=== PATIENT | male | born 1975 | race African-American/Black ===

== ENCOUNTER 2020-09-25 17:24 | Inpatient (IN) | payer MEDICAID, OTHER ==
[~2020-09-25] VITALS: Ht 162.6 cm; Wt 74.2 kg
[2020-09-25] MEDS ORDERED: INSULIN LANTUS (GLARGINE) 1 /0.01ml (100units/ml) SC ONE (18:00)
[2020-09-25] MEDS ORDERED: SODIUM CHLORIDE 0.9% 1,000 ML IV ONE (18:00)
[2020-09-25] MEDS ORDERED: InsuLIN R (HUMAN) 100 UNITS in SODIUM CHL 0.9% 99 ML IV SCH (18:00)
[2020-09-25] MEDS ORDERED: CLINDAMYCIN 600MG IV 50 ML IV ONE (18:00)
[2020-09-25] MEDS: ACCU-CHEK COMFORT CURVE STRIP VI SCH ×4 (18:00→22:30)
[2020-09-25] MEDS ORDERED: DEXTROSE (50%) 50ML SYRG IV PRN (18:00)
[2020-09-25] MEDS ORDERED: hydrALAZINE HCL 20 MG/ML VL IV ONE (18:15)
[2020-09-25] MEDS ORDERED: cloNIDine HCL 0.1 MG TAB PO ONE (18:15)
[2020-09-25 18:58] LABS: Basophils # (auto) 0 10 ^3/uL (0-0.2); Basophils % (auto) 0.5 % (0.0-2.0); Eosinophils # (auto) 0 10 ^3/uL (0-0.8); Eosinophils % (auto) 0.4 % (0.0-7.0); Hematocrit 38.4 % (41.0-53.0); Hemoglobin 13.4 g/dL (13.5-17.5); Lymphocytes # (auto) 1.6 10 ^3/uL (0.4-5.4); Lymphocytes % (auto) 29.4 % (10.0-50.0); Monocytes # (auto) 0.3 10 ^3/uL (0-1.3); Monocytes % (auto) 6.2 % (0.0-12.0); Neutrophils # (auto) 3.5 10 ^3/uL (1.6-8.6); Neutrophils % (auto) 63.5 % (37.0-80.0); Nucleated Red Blood Cells % 0.2 %; Red Blood Cells 4.63 10^6/uL (4.5-5.90); Red Cell Distribution Width 12.8 % (11.8-14.3); White Blood Cell 5.5 10^3/uL (4.4-10.8)
[2020-09-25 19:12] LABS: Albumin 3.5 g/dL (3.4-5.0); Calcium 9.5 mg/dL (8.5-10.1); Magnesium 1.8 mg/dL (1.6-2.6)
[2020-09-25 19:22] LABS: BUN/Creatinine Ratio 8.8; Bilirubin, Total 0.6 mg/dL (0.2-1.0); Total Protein 7.7 g/dL (6.4-8.2)
[2020-09-25] MEDS ORDERED: TEMAZEPAM 15 MG CAP PO PRN (21:15)
[2020-09-25] MEDS ORDERED: ONDANSETRON HCL 4 MG/2 ML VIAL IV PRN (21:15)
[2020-09-25] MEDS ORDERED: cefTRIAXone 1GM/50ML D5W 50 ML IV ONE (21:15)
[2020-09-25] MEDS ORDERED: ACETAMINOPHEN 325 MG TAB PO PRN (21:15)
[2020-09-25 21:25] LABS: Urine WBC None Seen /hpf (0 - 3)
[2020-09-25 21:32] LABS: Urine Bacteria NONE SEEN /hpf (None Seen); Urine Blood Negative /uL (Negative); Urine Specific Gravity 1.031 (1.001-1.035)
[2020-09-25] MEDS: SODIUM CHLORIDE 0.9% 1,000 ML IV SCH (21:35)
[2020-09-25] MEDS: FAMOTIDINE 20 MG TAB PO SCH (22:20)
[2020-09-25] MEDS ORDERED: MORPHINE SULFATE INJECTION 2 MG/ML SYRG IV PRN (22:45)
[2020-09-25] MEDS ORDERED: NITROGLYCERIN 0.4 MG SL TAB SL PRN (22:45)
[2020-09-25 23:32] LABS: BUN/Creatinine Ratio 11.3; Calcium 9.5 mg/dL (8.5-10.1); Potassium 3.5 mmol/L (3.5-5.1)
[2020-09-26] MEDS: ACCU-CHEK COMFORT CURVE STRIP VI SCH ×9 (01:48→20:46)
[2020-09-26] MEDS: CLINDAMYCIN 600MG IV 50 ML IV SCH ×2 (05:45→14:55)
[2020-09-26] MEDS ORDERED: DEXTROSE (50%) 50ML SYRG IV PRN (06:30)
[2020-09-26 07:55] LABS: Basophils # (auto) 0 10 ^3/uL (0-0.2); Basophils % (auto) 0.8 % (0.0-2.0); Eosinophils # (auto) 0 10 ^3/uL (0-0.8); Eosinophils % (auto) 0.7 % (0.0-7.0); Hematocrit 35.2 % (41.0-53.0); Hemoglobin 12.5 g/dL (13.5-17.5); Lymphocytes # (auto) 2.5 10 ^3/uL (0.4-5.4); Lymphocytes % (auto) 40.2 % (10.0-50.0); Mean Corpuscular Hemoglobin 28.8 pg (28.0-32.0); Mean Corpuscular Hgb Conc. 35.4 g/dL (32.0-36.0); Mean Corpuscular Volume 81.4 fL (80.0-100.0); Monocytes # (auto) 0.4 10 ^3/uL (0-1.3); Monocytes % (auto) 6.1 % (0.0-12.0); Neutrophils # (auto) 3.2 10 ^3/uL (1.6-8.6); Neutrophils % (auto) 52.2 % (37.0-80.0); Nucleated Red Blood Cells % 0.1 %; Red Blood Cells 4.33 10^6/uL (4.5-5.90); Red Cell Distribution Width 12.5 % (11.8-14.3); White Blood Cell 6.1 10^3/uL (4.4-10.8)
[2020-09-26 08:20] LABS: Albumin 2.8 g/dL (3.4-5.0); BUN/Creatinine Ratio 15.4; Calcium 9.1 mg/dL (8.5-10.1); Potassium 3.6 mmol/L (3.5-5.1)
[2020-09-26 08:23] LABS: Bilirubin, Total 0.5 mg/dL (0.2-1.0); Total Protein 6.8 g/dL (6.4-8.2)
[2020-09-26] MEDS: SODIUM CHLORIDE 0.9% 1,000 ML IV SCH (09:01)
[2020-09-26 09:30] VITALS: BP 154/98
[2020-09-26] MEDS ORDERED: HYDR100T22 PO (09:47)
[2020-09-26] MEDS ORDERED: METF-929 PO (09:47)
[2020-09-26] MEDS ORDERED: BENA40TA8 PO (09:47)
[2020-09-26] MEDS ORDERED: INSU1INJ19 SC (09:47)
[2020-09-26] MEDS ORDERED: LISINOPRIL 5 MG TAB PO SCH (10:00)
[2020-09-26] MEDS: InsuLIN REG 1unit/0.01ml Soln (100units/ml) SC SCH ×4 (10:53→20:43)
[2020-09-26] MEDS: cefTRIAXone 1GM/50ML D5W 50 ML IV SCH (10:54)
[2020-09-26] MEDS: FAMOTIDINE 20 MG TAB PO SCH (10:54)
[2020-09-26] MEDS: INSULIN LANTUS (GLARGINE) 1 /0.01ml (100units/ml) SC SCH (10:55)
[2020-09-26] MEDS: ENOXAPARIN SOD 40 MG/0.4 ML SYRINGE SC SCH (10:55)
[2020-09-26] MEDS ORDERED: ATOR40TA52 PO (11:43)
[2020-09-26 13:00] VITALS: BP 144/99
[2020-09-26] MEDS: metroNIDAZOLE 500MG/100ML 100 ML IV SCH ×2 (13:04→17:39)
[2020-09-26 17:00] VITALS: BP 163/118
[2020-09-26] MEDS: BENAZEPRIL HCL 10 MG TAB PO SCH (17:22)
[2020-09-26] MEDS: hydrALAZINE HCL 20 MG/ML VL IV PRN (18:22)
[2020-09-26 20:00] VITALS: BP 161/98
[2020-09-26 22:09] VITALS: BP 161/98
[2020-09-27] VITALS (7 sets, daily range): BP systolic 145–166; BP diastolic 93–112
[2020-09-27] MEDS: CLINDAMYCIN 600MG IV 50 ML IV SCH ×3 (00:45→14:00)
[2020-09-27] MEDS: FAMOTIDINE 20 MG TAB PO SCH ×3 (00:45→22:00)
[2020-09-27] MEDS: InsuLIN REG 1unit/0.01ml Soln (100units/ml) SC SCH ×6 (00:47→20:56)
[2020-09-27] MEDS: metroNIDAZOLE 500MG/100ML 100 ML IV SCH ×2 (04:56→10:32)
[2020-09-27] MEDS: ACCU-CHEK COMFORT CURVE STRIP VI SCH ×6 (05:06→20:00)
[2020-09-27] MEDS: cefTRIAXone 1GM/50ML D5W 50 ML IV SCH (08:58)
[2020-09-27] MEDS: ATORVASTATIN 20 MG TAB PO SCH (08:58)
[2020-09-27] MEDS: ENOXAPARIN SOD 40 MG/0.4 ML SYRINGE SC SCH (08:59)
[2020-09-27] MEDS: BENAZEPRIL HCL 10 MG TAB PO SCH (08:59)
[2020-09-27] MEDS: INSULIN LANTUS (GLARGINE) 1 /0.01ml (100units/ml) SC SCH (10:36)
[2020-09-27] MEDS: hydrALAZINE HCL 20 MG/ML VL IV PRN (12:43)
[2020-09-27] MEDS ORDERED: amLODIPine BESYLATE 5 MG TAB PO ONE (18:00)
[2020-09-27 19:28] LABS: INR 0.98 (0.9-1.15); Partial Thromboplastin Time 28.7 sec (23.0-31.2)
[2020-09-28] MEDS: CLINDAMYCIN 600MG IV 50 ML IV SCH ×4 (01:02→23:01)
[2020-09-28] MEDS: ACCU-CHEK COMFORT CURVE STRIP VI SCH ×6 (04:30→20:00)
[2020-09-28] MEDS: InsuLIN REG 1unit/0.01ml Soln (100units/ml) SC SCH ×6 (04:30→20:00)
[2020-09-28 05:11] VITALS: BP 157/117
[2020-09-28 07:15] LABS: Basophils # (auto) 0 10 ^3/uL (0-0.2); Basophils % (auto) 0.9 % (0.0-2.0); Eosinophils # (auto) 0 10 ^3/uL (0-0.8); Eosinophils % (auto) 0.7 % (0.0-7.0); Hematocrit 36.7 % (41.0-53.0); Hemoglobin 12.8 g/dL (13.5-17.5); Lymphocytes # (auto) 1.6 10 ^3/uL (0.4-5.4); Lymphocytes % (auto) 37.4 % (10.0-50.0); Mean Corpuscular Hemoglobin 28.9 pg (28.0-32.0); Mean Corpuscular Volume 82.5 fL (80.0-100.0); Monocytes # (auto) 0.3 10 ^3/uL (0-1.3); Monocytes % (auto) 7.5 % (0.0-12.0); Neutrophils # (auto) 2.3 10 ^3/uL (1.6-8.6); Neutrophils % (auto) 53.5 % (37.0-80.0); Nucleated Red Blood Cells % 0.1 %; Red Blood Cells 4.45 10^6/uL (4.5-5.90); Red Cell Distribution Width 12.6 % (11.8-14.3); White Blood Cell 4.3 10^3/uL (4.4-10.8)
[2020-09-28 07:53] LABS: Potassium 3.9 mmol/L (3.5-5.1)
[2020-09-28 07:59] LABS: BUN/Creatinine Ratio 24.6; Calcium 8.9 mg/dL (8.5-10.1)
[2020-09-28 08:49] VITALS: BP 140/97
[2020-09-28] MEDS: ATORVASTATIN 20 MG TAB PO SCH (08:59)
[2020-09-28] MEDS: cefTRIAXone 1GM/50ML D5W 50 ML IV SCH (08:59)
[2020-09-28] MEDS: BENAZEPRIL HCL 10 MG TAB PO SCH (09:01)
[2020-09-28] MEDS: amLODIPine BESYLATE 5 MG TAB PO SCH (09:01)
[2020-09-28] MEDS: FAMOTIDINE 20 MG TAB PO SCH (09:01)
[2020-09-28] MEDS: ENOXAPARIN SOD 40 MG/0.4 ML SYRINGE SC SCH (09:03)
[2020-09-28 13:00] VITALS: BP 141/85
[2020-09-28] MEDS ORDERED: ceFAZolin 1GM/50ML 100 ML IV ONE (13:13)
[2020-09-28] MEDS ORDERED: ceFAZolin 1GM VL ONE (13:32)
[2020-09-28] MEDS ORDERED: ONDANSETRON HCL 4 MG/2 ML VIAL IV PRN ×2 (13:45→14:45)
[2020-09-28] MEDS ORDERED: LABETALOL HCL 5 MG/ML 4ML SYRINGE IV PRN ×2 (13:45→14:45)
[2020-09-28] MEDS ORDERED: fentaNYL CITRATE 100 MCG/2 ML VL ONE (13:45)
[2020-09-28] MEDS ORDERED: MIDAZOLAM HCL 2MG/2ML 2ml VIAL (1mg/ml) IV PRN ×2 (13:45→14:45)
[2020-09-28] MEDS ORDERED: HYDROmorphone HCL 2 MG/ML VL IV PRN ×2 (13:45→14:45)
[2020-09-28] MEDS ORDERED: MORPHINE SULFATE 4 MG/ML SYR/VIAL IV PRN (13:45)
[2020-09-28] MEDS ORDERED: MIDAZOLAM HCL 2MG/2ML 2ml VIAL (1mg/ml) ONE (13:45)
[2020-09-28] MEDS ORDERED: ePHEDrine SULFATE 50 MG/ML AMP IV PRN ×2 (13:45→14:45)
[2020-09-28] MEDS ORDERED: MEPERIDINE HCL (25 MG/ML) 1ML VIAL ONE (13:45)
[2020-09-28] MEDS ORDERED: PROPOFOL 10 MG/ML 20 ML IV ONE (13:52)
[2020-09-28] MEDS ORDERED: ePHEDrine SULFATE 50 MG/ML AMP ONE (14:31)
[2020-09-28] MEDS ORDERED: MORPHINE SULFATE INJECTION 2 MG/ML SYRG IV PRN (14:45)
[2020-09-28] MEDS: INSULIN LANTUS (GLARGINE) 1 /0.01ml (100units/ml) SC SCH (15:44)
[2020-09-28 17:00] VITALS: BP 134/88
[2020-09-28 20:00] VITALS: BP 137/87
[2020-09-28] MEDS: HYDROcodone-ACET 5/325MG TAB PO PRN (20:05)
[2020-09-28 22:00] VITALS: BP 137/87
[2020-09-29] MEDS: ACCU-CHEK COMFORT CURVE STRIP VI SCH ×6 (04:00→20:00)
[2020-09-29] MEDS: InsuLIN REG 1unit/0.01ml Soln (100units/ml) SC SCH ×6 (04:00→21:05)
[2020-09-29 05:00] VITALS: BP 156/105
[2020-09-29] MEDS: HYDROcodone-ACET 5/325MG TAB PO PRN (05:30)
[2020-09-29 05:37] LABS: Basophils # (auto) 0.1 10 ^3/uL (0-0.2); Basophils % (auto) 1.3 % (0.0-2.0); Eosinophils # (auto) 0 10 ^3/uL (0-0.8); Eosinophils % (auto) 0.3 % (0.0-7.0); Hematocrit 35.3 % (41.0-53.0); Hemoglobin 12.3 g/dL (13.5-17.5); Lymphocytes # (auto) 1.7 10 ^3/uL (0.4-5.4); Lymphocytes % (auto) 40.8 % (10.0-50.0); Mean Corpuscular Hemoglobin 29.3 pg (28.0-32.0); Mean Corpuscular Hgb Conc. 34.8 g/dL (32.0-36.0); Mean Corpuscular Volume 84.3 fL (80.0-100.0); Monocytes # (auto) 0.4 10 ^3/uL (0-1.3); Monocytes % (auto) 8.8 % (0.0-12.0); Neutrophils % (auto) 48.8 % (37.0-80.0); Nucleated Red Blood Cells % 0.1 %; Red Blood Cells 4.19 10^6/uL (4.5-5.90); Red Cell Distribution Width 12.4 % (11.8-14.3); White Blood Cell 4.2 10^3/uL (4.4-10.8)
[2020-09-29] MEDS: CLINDAMYCIN 600MG IV 50 ML IV SCH ×3 (05:57→21:08)
[2020-09-29 05:58] LABS: Calcium 8.9 mg/dL (8.5-10.1)
[2020-09-29] MEDS: hydrALAZINE HCL 20 MG/ML VL IV PRN (05:59)
[2020-09-29 06:00] LABS: BUN/Creatinine Ratio 24.2
[2020-09-29 08:00] VITALS: BP 130/87
[2020-09-29 09:00] VITALS: BP 130/87
[2020-09-29] MEDS: cefTRIAXone 1GM/50ML D5W 50 ML IV SCH (09:57)
[2020-09-29] MEDS: ENOXAPARIN SOD 40 MG/0.4 ML SYRINGE SC SCH (09:59)
[2020-09-29] MEDS: ATORVASTATIN 20 MG TAB PO SCH (10:00)
[2020-09-29] MEDS: amLODIPine BESYLATE 5 MG TAB PO SCH (10:01)
[2020-09-29] MEDS: BENAZEPRIL HCL 10 MG TAB PO SCH (10:17)
[2020-09-29] MEDS: INSULIN LANTUS (GLARGINE) 1 /0.01ml (100units/ml) SC SCH (10:19)
[2020-09-29 13:00] VITALS: BP 137/82
[2020-09-29 17:00] VITALS: BP 142/93
[2020-09-29 22:00] VITALS: BP 146/95
[2020-09-29] MEDS ORDERED: LINEZOLID 600MG/300ML 300 ML IV SCH (22:00)
[2020-09-30] VITALS (7 sets, daily range): BP systolic 105–160; BP diastolic 64–103
[2020-09-30] MEDS ORDERED: LINEZOLID 600MG/300ML 300 ML IV SCH
[2020-09-30] MEDS: InsuLIN REG 1unit/0.01ml Soln (100units/ml) SC SCH ×6 (00:37→20:10)
[2020-09-30] MEDS: ACCU-CHEK COMFORT CURVE STRIP VI SCH ×7 (04:08→23:57)
[2020-09-30] MEDS: hydrALAZINE HCL 20 MG/ML VL IV PRN (04:11)
[2020-09-30] MEDS: CLINDAMYCIN 600MG IV 50 ML IV SCH (05:37)
[2020-09-30 06:14] LABS: Basophils # (auto) 0 10 ^3/uL (0-0.2); Basophils % (auto) 0.5 % (0.0-2.0); Eosinophils # (auto) 0 10 ^3/uL (0-0.8); Eosinophils % (auto) 0.1 % (0.0-7.0); Hematocrit 34.5 % (41.0-53.0); Hemoglobin 12.1 g/dL (13.5-17.5); Lymphocytes # (auto) 1.5 10 ^3/uL (0.4-5.4); Lymphocytes % (auto) 43.1 % (10.0-50.0); Mean Corpuscular Hemoglobin 29.4 pg (28.0-32.0); Mean Corpuscular Volume 83.8 fL (80.0-100.0); Monocytes # (auto) 0.4 10 ^3/uL (0-1.3); Monocytes % (auto) 12.8 % (0.0-12.0); Neutrophils # (auto) 1.5 10 ^3/uL (1.6-8.6); Neutrophils % (auto) 43.5 % (37.0-80.0); Nucleated Red Blood Cells % 0.1 %; Red Blood Cells 4.11 10^6/uL (4.5-5.90); Red Cell Distribution Width 12.5 % (11.8-14.3); White Blood Cell 3.4 10^3/uL (4.4-10.8)
[2020-09-30 06:38] LABS: Potassium 3.9 mmol/L (3.5-5.1)
[2020-09-30 06:52] LABS: Calcium 8.9 mg/dL (8.5-10.1)
[2020-09-30] MEDS: amLODIPine BESYLATE 5 MG TAB PO SCH (10:02)
[2020-09-30] MEDS: INSULIN LANTUS (GLARGINE) 1 /0.01ml (100units/ml) SC SCH (10:02)
[2020-09-30] MEDS: ATORVASTATIN 20 MG TAB PO SCH (10:02)
[2020-09-30] MEDS: ENOXAPARIN SOD 40 MG/0.4 ML SYRINGE SC SCH (10:03)
[2020-09-30] MEDS: BENAZEPRIL HCL 10 MG TAB PO SCH (10:44)
[2020-09-30] MEDS: AMPICILLIN & SULBACTAM SODIUM 3 GM in SODIUM CHL 0.9% 100 ML IV SCH ×3 (13:17→23:59)
[2020-10-01] MEDS: InsuLIN REG 1unit/0.01ml Soln (100units/ml) SC SCH ×7 (00:05→23:51)
[2020-10-01] MEDS: ACCU-CHEK COMFORT CURVE STRIP VI SCH ×6 (03:58→23:49)
[2020-10-01] MEDS: hydrALAZINE HCL 20 MG/ML VL IV PRN (04:17)
[2020-10-01 05:00] VITALS: BP 160/104
[2020-10-01 05:09] VITALS: BP 150/89
[2020-10-01] MEDS: AMPICILLIN & SULBACTAM SODIUM 3 GM in SODIUM CHL 0.9% 100 ML IV SCH ×2 (05:54→12:13)
[2020-10-01 07:27] LABS: Basophils # (auto) 0 10 ^3/uL (0-0.2); Basophils % (auto) 0.8 % (0.0-2.0); Eosinophils # (auto) 0 10 ^3/uL (0-0.8); Eosinophils % (auto) 0.5 % (0.0-7.0); Hematocrit 34.6 % (41.0-53.0); Hemoglobin 12.2 g/dL (13.5-17.5); Lymphocytes # (auto) 1.5 10 ^3/uL (0.4-5.4); Lymphocytes % (auto) 39.5 % (10.0-50.0); Mean Corpuscular Hemoglobin 29.3 pg (28.0-32.0); Mean Corpuscular Hgb Conc. 35.3 g/dL (32.0-36.0); Mean Corpuscular Volume 83.1 fL (80.0-100.0); Monocytes # (auto) 0.4 10 ^3/uL (0-1.3); Monocytes % (auto) 11.1 % (0.0-12.0); Neutrophils # (auto) 1.9 10 ^3/uL (1.6-8.6); Neutrophils % (auto) 48.1 % (37.0-80.0); Nucleated Red Blood Cells % 0.1 %; Red Blood Cells 4.16 10^6/uL (4.5-5.90); Red Cell Distribution Width 12.8 % (11.8-14.3); White Blood Cell 3.9 10^3/uL (4.4-10.8)
[2020-10-01 07:50] LABS: BUN/Creatinine Ratio 20.3; Calcium 9.1 mg/dL (8.5-10.1); Potassium 4.2 mmol/L (3.5-5.1)
[2020-10-01 09:06] VITALS: BP 145/87
[2020-10-01] MEDS: amLODIPine BESYLATE 5 MG TAB PO SCH (10:36)
[2020-10-01] MEDS: BENAZEPRIL HCL 10 MG TAB PO SCH (10:36)
[2020-10-01] MEDS: ENOXAPARIN SOD 40 MG/0.4 ML SYRINGE SC SCH (10:36)
[2020-10-01] MEDS: ATORVASTATIN 20 MG TAB PO SCH (10:36)
[2020-10-01] MEDS: INSULIN LANTUS (GLARGINE) 1 /0.01ml (100units/ml) SC SCH (10:42)
[2020-10-01] MEDS ORDERED: MICAFUNGIN SODIUM 100 MG in SODIUM CHL 0.9% 100 ML IV ONE (12:30)
[2020-10-01 13:13] VITALS: BP 116/71
[2020-10-01] MEDS ORDERED: levoFLOXacin 500MG 100 ML IV ONE (13:30)
[2020-10-01 17:00] VITALS: BP 141/89
[2020-10-01] MEDS: LINEZOLID 600MG/300ML 300 ML IV SCH (21:16)
[2020-10-01 21:48] VITALS: BP 137/86
[2020-10-02] MEDS: ACCU-CHEK COMFORT CURVE STRIP VI SCH ×5 (03:53→20:22)
[2020-10-02] MEDS: InsuLIN REG 1unit/0.01ml Soln (100units/ml) SC SCH ×5 (03:56→20:26)
[2020-10-02 05:03] VITALS: BP 158/94
[2020-10-02] MEDS: hydrALAZINE HCL 20 MG/ML VL IV PRN (05:51)
[2020-10-02 09:00] VITALS: BP 138/88
[2020-10-02] MEDS: BENAZEPRIL HCL 10 MG TAB PO SCH (09:36)
[2020-10-02] MEDS: levoFLOXacin 500MG 100 ML IV SCH (09:36)
[2020-10-02] MEDS: ENOXAPARIN SOD 40 MG/0.4 ML SYRINGE SC SCH (09:36)
[2020-10-02] MEDS: amLODIPine BESYLATE 5 MG TAB PO SCH (09:36)
[2020-10-02] MEDS: ATORVASTATIN 20 MG TAB PO SCH (09:36)
[2020-10-02] MEDS: LINEZOLID 600MG/300ML 300 ML IV SCH ×2 (10:00→21:42)
[2020-10-02] MEDS ORDERED: MICAFUNGIN SODIUM 100 MG in SODIUM CHL 0.9% 100 ML IV SCH (10:00)
[2020-10-02] MEDS: INSULIN LANTUS (GLARGINE) 1 /0.01ml (100units/ml) SC SCH (10:09)
[2020-10-02 13:00] VITALS: BP 116/85
[2020-10-02 17:00] VITALS: BP 133/86
[2020-10-02 21:57] VITALS: BP 139/91
[2020-10-03] MEDS: ACCU-CHEK COMFORT CURVE STRIP VI SCH ×7 (00:09→23:46)
[2020-10-03] MEDS: InsuLIN REG 1unit/0.01ml Soln (100units/ml) SC SCH ×7 (00:15→23:48)
[2020-10-03 04:40] VITALS: BP 143/101
[2020-10-03 08:44] VITALS: BP 138/100
[2020-10-03] MEDS: ATORVASTATIN 20 MG TAB PO SCH (09:16)
[2020-10-03] MEDS: amLODIPine BESYLATE 5 MG TAB PO SCH (09:16)
[2020-10-03] MEDS: BENAZEPRIL HCL 10 MG TAB PO SCH (09:16)
[2020-10-03] MEDS: ENOXAPARIN SOD 40 MG/0.4 ML SYRINGE SC SCH (09:17)
[2020-10-03] MEDS: levoFLOXacin 500MG 100 ML IV SCH (09:30)
[2020-10-03] MEDS: INSULIN LANTUS (GLARGINE) 1 /0.01ml (100units/ml) SC SCH (09:58)
[2020-10-03] MEDS: LINEZOLID 600MG/300ML 300 ML IV SCH (11:04)
[2020-10-03] MEDS ORDERED: FLUCONAZOLE 200MG/100ML 100 ML IV ONE (11:45)
[2020-10-03 12:35] VITALS: BP 112/80
[2020-10-03] MEDS: AMPICILLIN & SULBACTAM SODIUM 3 GM in SODIUM CHL 0.9% 100 ML IV SCH ×2 (14:00→20:49)
[2020-10-03 17:13] VITALS: BP 131/88
[2020-10-03 22:00] VITALS: BP 128/89
[2020-10-04] MEDS: AMPICILLIN & SULBACTAM SODIUM 3 GM in SODIUM CHL 0.9% 100 ML IV SCH ×4 (02:29→21:02)
[2020-10-04] MEDS: ACCU-CHEK COMFORT CURVE STRIP VI SCH ×5 (04:00→21:02)
[2020-10-04] MEDS: InsuLIN REG 1unit/0.01ml Soln (100units/ml) SC SCH ×5 (04:02→21:09)
[2020-10-04 05:00] VITALS: BP 133/92
[2020-10-04 05:39] LABS: Hematocrit 37.1 % (41.0-53.0); Hemoglobin 12.6 g/dL (13.5-17.5); Mean Corpuscular Hemoglobin 28.5 pg (28.0-32.0); Mean Corpuscular Hgb Conc. 33.9 g/dL (32.0-36.0); Mean Corpuscular Volume 83.9 fL (80.0-100.0); Red Blood Cells 4.42 10^6/uL (4.5-5.90); Red Cell Distribution Width 12.7 % (11.8-14.3); White Blood Cell 4.9 10^3/uL (4.4-10.8)
[2020-10-04 05:40] LABS: Basophils % (manual) 0 (0.0-2.0); Blast Cells 0; Eosinophils % (manual) 0 (0-7); Metamyelocytes % 0; Myelocytes % 0; Promyelocytes % 0; Reactive Lymphocytes 0
[2020-10-04 05:53] LABS: Calcium 9.4 mg/dL (8.5-10.1); Potassium 3.9 mmol/L (3.5-5.1)
[2020-10-04 05:56] LABS: BUN/Creatinine Ratio 23.3
[2020-10-04 06:30] LABS: Band Neutrophils % (manual) 2; Lymphocytes % (manual) 76 (10.0-50.0); Monocytes % (manual) 3 (0-12)
[2020-10-04 08:30] VITALS: BP 148/101
[2020-10-04] MEDS: FLUCONAZOLE 200MG/100ML 100 ML IV SCH ×2 (09:26→11:21)
[2020-10-04] MEDS: amLODIPine BESYLATE 5 MG TAB PO SCH (09:26)
[2020-10-04] MEDS: BENAZEPRIL HCL 10 MG TAB PO SCH (09:26)
[2020-10-04] MEDS: ATORVASTATIN 20 MG TAB PO SCH (09:26)
[2020-10-04] MEDS: INSULIN LANTUS (GLARGINE) 1 /0.01ml (100units/ml) SC SCH (09:27)
[2020-10-04] MEDS: ENOXAPARIN SOD 40 MG/0.4 ML SYRINGE SC SCH (09:27)
[2020-10-04] MEDS ORDERED: FLUCONAZOLE 200MG/100ML 100 ML IV SCH (10:00)
[2020-10-04 12:30] VITALS: BP 147/99
[2020-10-04 17:00] VITALS: BP 138/88
[2020-10-04 21:36] VITALS: BP 121/91
[2020-10-05] MEDS: AMPICILLIN & SULBACTAM SODIUM 3 GM in SODIUM CHL 0.9% 100 ML IV SCH ×4 (02:05→20:42)
[2020-10-05] MEDS: ACCU-CHEK COMFORT CURVE STRIP VI SCH ×7 (04:10→22:00)
[2020-10-05] MEDS: InsuLIN REG 1unit/0.01ml Soln (100units/ml) SC SCH ×7 (04:12→22:00)
[2020-10-05 05:00] VITALS: BP 155/95
[2020-10-05 05:39] LABS: Hematocrit 37.5 % (41.0-53.0); Hemoglobin 12.8 g/dL (13.5-17.5); Mean Corpuscular Hemoglobin 28.5 pg (28.0-32.0); Mean Corpuscular Hgb Conc. 34.1 g/dL (32.0-36.0); Mean Corpuscular Volume 83.5 fL (80.0-100.0); Red Blood Cells 4.49 10^6/uL (4.5-5.90); Red Cell Distribution Width 12.9 % (11.8-14.3); White Blood Cell 4.2 10^3/uL (4.4-10.8)
[2020-10-05 06:04] LABS: Band Neutrophils % (manual) 0; Basophils % (manual) 0 (0.0-2.0); Blast Cells 0; Eosinophils % (manual) 0 (0-7); Metamyelocytes % 0; Myelocytes % 0; Promyelocytes % 0; Reactive Lymphocytes 0
[2020-10-05 06:17] LABS: Potassium 3.7 mmol/L (3.5-5.1)
[2020-10-05 06:23] LABS: BUN/Creatinine Ratio 22.5; Calcium 9.2 mg/dL (8.5-10.1)
[2020-10-05 08:56] VITALS: BP 148/104
[2020-10-05 09:04] LABS: Lymphocytes % (manual) 71 (10.0-50.0); Monocytes % (manual) 1 (0-12)
[2020-10-05] MEDS: ENOXAPARIN SOD 40 MG/0.4 ML SYRINGE SC SCH (09:27)
[2020-10-05] MEDS: amLODIPine BESYLATE 5 MG TAB PO SCH (09:28)
[2020-10-05] MEDS: ATORVASTATIN 20 MG TAB PO SCH (09:28)
[2020-10-05] MEDS: BENAZEPRIL HCL 10 MG TAB PO SCH (09:34)
[2020-10-05] MEDS ORDERED: INSULIN LANTUS (GLARGINE) 1 /0.01ml (100units/ml) SC SCH (10:00)
[2020-10-05] MEDS: FLUCONAZOLE 200MG/100ML 100 ML IV SCH ×2 (10:44→11:51)
[2020-10-05 12:49] VITALS: BP 139/90
[2020-10-05] MEDS: hydrALAZINE HCL 20 MG/ML VL IV PRN (15:48)
[2020-10-05 16:34] VITALS: BP 152/96
[2020-10-05] MEDS ORDERED: DEXTROSE (50%) 50ML SYRG IV PRN (21:15)
[2020-10-05 22:00] VITALS: BP 142/92
[2020-10-06] MEDS: AMPICILLIN & SULBACTAM SODIUM 3 GM in SODIUM CHL 0.9% 100 ML IV SCH ×4 (01:51→20:47)
[2020-10-06 05:00] VITALS: BP 139/98
[2020-10-06] MEDS: ACCU-CHEK COMFORT CURVE STRIP VI SCH ×4 (06:00→21:26)
[2020-10-06] MEDS: InsuLIN REG 1unit/0.01ml Soln (100units/ml) SC SCH ×4 (06:01→21:32)
[2020-10-06 08:30] VITALS: BP 140/94
[2020-10-06] MEDS: ATORVASTATIN 20 MG TAB PO SCH (09:29)
[2020-10-06] MEDS: BENAZEPRIL HCL 10 MG TAB PO SCH (09:30)
[2020-10-06] MEDS: amLODIPine BESYLATE 5 MG TAB PO SCH (09:31)
[2020-10-06] MEDS: ENOXAPARIN SOD 40 MG/0.4 ML SYRINGE SC SCH (09:32)
[2020-10-06] MEDS: INSULIN LANTUS (GLARGINE) 1 /0.01ml (100units/ml) SC SCH (09:32)
[2020-10-06] MEDS: FLUCONAZOLE 200MG/100ML 100 ML IV SCH ×2 (09:33→11:37)
[2020-10-06 12:30] VITALS: BP 145/94
[2020-10-06 17:00] VITALS: BP 125/82
[2020-10-06 22:00] VITALS: BP 148/102
[2020-10-07] MEDS: AMPICILLIN & SULBACTAM SODIUM 3 GM in SODIUM CHL 0.9% 100 ML IV SCH ×5 (02:00→14:00)
[2020-10-07 05:00] VITALS: BP 141/95
[2020-10-07 05:42] LABS: Hemoglobin 12.1 g/dL (13.5-17.5); Mean Corpuscular Hemoglobin 29.6 pg (28.0-32.0); Mean Corpuscular Hgb Conc. 35.5 g/dL (32.0-36.0); Mean Corpuscular Volume 83.3 fL (80.0-100.0); Red Blood Cells 4.08 10^6/uL (4.5-5.90); Red Cell Distribution Width 13.2 % (11.8-14.3); White Blood Cell 4.5 10^3/uL (4.4-10.8)
[2020-10-07 06:16] LABS: BUN/Creatinine Ratio 21.1; Potassium 3.9 mmol/L (3.5-5.1)
[2020-10-07] MEDS: ACCU-CHEK COMFORT CURVE STRIP VI SCH ×4 (06:31→22:00)
[2020-10-07] MEDS: InsuLIN REG 1unit/0.01ml Soln (100units/ml) SC SCH ×4 (06:40→22:00)
[2020-10-07 07:10] LABS: Band Neutrophils % (manual) 0; Basophils % (manual) 0 (0.0-2.0); Blast Cells 0; Metamyelocytes % 0; Monocytes % (manual) 0 (0-12); Myelocytes % 0; Promyelocytes % 0; Reactive Lymphocytes 0
[2020-10-07 08:02] LABS: Eosinophils % (manual) 1 (0-7); Lymphocytes % (manual) 70 (10.0-50.0)
[2020-10-07] MEDS: ATORVASTATIN 20 MG TAB PO SCH (08:23)
[2020-10-07] MEDS: amLODIPine BESYLATE 5 MG TAB PO SCH (08:24)
[2020-10-07] MEDS: BENAZEPRIL HCL 10 MG TAB PO SCH (08:25)
[2020-10-07] MEDS: ENOXAPARIN SOD 40 MG/0.4 ML SYRINGE SC SCH (08:25)
[2020-10-07 09:00] VITALS: BP 157/104
[2020-10-07] MEDS: INSULIN LANTUS (GLARGINE) 1 /0.01ml (100units/ml) SC SCH (09:30)
[2020-10-07] MEDS: FLUCONAZOLE 200MG/100ML 100 ML IV SCH ×2 (10:46→11:00)
[2020-10-07 13:00] VITALS: BP 125/94
[2020-10-07 17:00] VITALS: BP 158/104
[2020-10-07 22:11] VITALS: BP 132/100
[2020-10-08] MEDS: hydrALAZINE HCL 20 MG/ML VL IV PRN (04:15)
[2020-10-08 05:02] VITALS: BP 159/104
[2020-10-08 05:38] LABS: Hematocrit 34.7 % (41.0-53.0); Hemoglobin 11.9 g/dL (13.5-17.5); Mean Corpuscular Hemoglobin 28.7 pg (28.0-32.0); Mean Corpuscular Hgb Conc. 34.4 g/dL (32.0-36.0); Mean Corpuscular Volume 83.5 fL (80.0-100.0); Red Blood Cells 4.15 10^6/uL (4.5-5.90); White Blood Cell 4.5 10^3/uL (4.4-10.8)
[2020-10-08 05:55] LABS: Potassium 3.8 mmol/L (3.5-5.1)
[2020-10-08 05:57] LABS: Band Neutrophils % (manual) 0; Basophils % (manual) 0 (0.0-2.0); Blast Cells 0; Eosinophils % (manual) 0 (0-7); Metamyelocytes % 0; Myelocytes % 0; Promyelocytes % 0; Reactive Lymphocytes 0
[2020-10-08 05:58] LABS: BUN/Creatinine Ratio 19.2; Calcium 9.1 mg/dL (8.5-10.1)
[2020-10-08] MEDS: AMPICILLIN & SULBACTAM SODIUM 3 GM in SODIUM CHL 0.9% 100 ML IV SCH ×4 (06:13→23:59)
[2020-10-08] MEDS: ACCU-CHEK COMFORT CURVE STRIP VI SCH ×4 (06:27→21:44)
[2020-10-08] MEDS: InsuLIN REG 1unit/0.01ml Soln (100units/ml) SC SCH ×4 (06:31→21:45)
[2020-10-08 06:47] LABS: Lymphocytes % (manual) 70 (10.0-50.0); Monocytes % (manual) 4 (0-12)
[2020-10-08 08:30] VITALS: BP 141/86
[2020-10-08] MEDS: FLUCONAZOLE 200MG/100ML 100 ML IV SCH ×2 (08:38→14:30)
[2020-10-08] MEDS: ATORVASTATIN 20 MG TAB PO SCH (08:40)
[2020-10-08] MEDS: amLODIPine BESYLATE 5 MG TAB PO SCH (08:41)
[2020-10-08] MEDS: INSULIN LANTUS (GLARGINE) 1 /0.01ml (100units/ml) SC SCH (10:00)
[2020-10-08] MEDS: BENAZEPRIL HCL 10 MG TAB PO SCH (10:00)
[2020-10-08 12:30] VITALS: BP 150/80
[2020-10-08 16:39] VITALS: BP 134/90
[2020-10-08 22:20] VITALS: BP 135/99
[2020-10-09 05:16] VITALS: BP 142/99
[2020-10-09] MEDS: AMPICILLIN & SULBACTAM SODIUM 3 GM in SODIUM CHL 0.9% 100 ML IV SCH ×4 (05:37→23:28)
[2020-10-09] MEDS: InsuLIN REG 1unit/0.01ml Soln (100units/ml) SC SCH ×4 (07:01→22:08)
[2020-10-09] MEDS: ACCU-CHEK COMFORT CURVE STRIP VI SCH ×4 (07:01→22:08)
[2020-10-09 09:11] VITALS: BP 138/91
[2020-10-09] MEDS: ATORVASTATIN 20 MG TAB PO SCH (10:01)
[2020-10-09] MEDS: FLUCONAZOLE 200MG/100ML 100 ML IV SCH ×2 (10:01→11:24)
[2020-10-09] MEDS: BENAZEPRIL HCL 10 MG TAB PO SCH (10:02)
[2020-10-09] MEDS: INSULIN LANTUS (GLARGINE) 1 /0.01ml (100units/ml) SC SCH (10:12)
[2020-10-09] MEDS: amLODIPine BESYLATE 5 MG TAB PO SCH (10:12)
[2020-10-09 12:34] VITALS: BP 149/95
[2020-10-09 17:22] VITALS: BP 124/91
[2020-10-09] MEDS: metFORMIN HYDROCHLORIDE 500 MG TAB PO SCH (17:44)
[2020-10-09 22:00] VITALS: BP 131/97
[2020-10-10 05:00] VITALS: BP 155/101
[2020-10-10] MEDS: AMPICILLIN & SULBACTAM SODIUM 3 GM in SODIUM CHL 0.9% 100 ML IV SCH ×4 (05:48→23:40)
[2020-10-10] MEDS: ACCU-CHEK COMFORT CURVE STRIP VI SCH ×4 (06:19→21:18)
[2020-10-10] MEDS: hydrALAZINE HCL 20 MG/ML VL IV PRN (06:20)
[2020-10-10] MEDS: InsuLIN REG 1unit/0.01ml Soln (100units/ml) SC SCH ×4 (06:21→21:19)
[2020-10-10] MEDS: metFORMIN HYDROCHLORIDE 500 MG TAB PO SCH ×2 (08:02→18:13)
[2020-10-10 09:00] VITALS: BP 130/97
[2020-10-10] MEDS: ATORVASTATIN 20 MG TAB PO SCH (09:07)
[2020-10-10] MEDS: FLUCONAZOLE 200MG/100ML 100 ML IV SCH ×2 (09:08→12:19)
[2020-10-10] MEDS: amLODIPine BESYLATE 5 MG TAB PO SCH (09:08)
[2020-10-10] MEDS: INSULIN LANTUS (GLARGINE) 1 /0.01ml (100units/ml) SC SCH (09:19)
[2020-10-10] MEDS: BENAZEPRIL HCL 10 MG TAB PO SCH (09:22)
[2020-10-10 13:00] VITALS: BP 121/84
[2020-10-10 17:00] VITALS: BP 131/92
[2020-10-10 22:00] VITALS: BP 121/78
[2020-10-11 05:00] VITALS: BP 143/93
[2020-10-11] MEDS: AMPICILLIN & SULBACTAM SODIUM 3 GM in SODIUM CHL 0.9% 100 ML IV SCH ×3 (05:46→18:15)
[2020-10-11] MEDS: ACCU-CHEK COMFORT CURVE STRIP VI SCH ×4 (05:47→22:25)
[2020-10-11] MEDS: InsuLIN REG 1unit/0.01ml Soln (100units/ml) SC SCH ×4 (06:05→22:25)
[2020-10-11 06:17] LABS: Hematocrit 35.2 % (41.0-53.0); Mean Corpuscular Hemoglobin 28.6 pg (28.0-32.0); Mean Corpuscular Hgb Conc. 34.1 g/dL (32.0-36.0); Mean Corpuscular Volume 83.7 fL (80.0-100.0); Red Blood Cells 4.21 10^6/uL (4.5-5.90); Red Cell Distribution Width 13.2 % (11.8-14.3); White Blood Cell 4.2 10^3/uL (4.4-10.8)
[2020-10-11 06:21] LABS: Band Neutrophils % (manual) 0; Basophils % (manual) 0 (0.0-2.0); Blast Cells 0; Eosinophils % (manual) 0 (0-7); Metamyelocytes % 0; Myelocytes % 0; Promyelocytes % 0; Reactive Lymphocytes 0
[2020-10-11 06:30] LABS: BUN/Creatinine Ratio 17.9; Calcium 9.1 mg/dL (8.5-10.1); Potassium 3.8 mmol/L (3.5-5.1)
[2020-10-11 06:50] LABS: Lymphocytes % (manual) 63 (10.0-50.0); Monocytes % (manual) 3 (0-12)
[2020-10-11 08:52] VITALS: BP 144/103
[2020-10-11] MEDS: ATORVASTATIN 20 MG TAB PO SCH (08:55)
[2020-10-11] MEDS: metFORMIN HYDROCHLORIDE 500 MG TAB PO SCH ×2 (08:56→18:50)
[2020-10-11] MEDS: amLODIPine BESYLATE 5 MG TAB PO SCH (08:57)
[2020-10-11] MEDS: FLUCONAZOLE 200MG/100ML 100 ML IV SCH ×2 (08:57→12:14)
[2020-10-11] MEDS: BENAZEPRIL HCL 10 MG TAB PO SCH (08:58)
[2020-10-11] MEDS: INSULIN LANTUS (GLARGINE) 1 /0.01ml (100units/ml) SC SCH (09:20)
[2020-10-11 12:44] VITALS: BP 144/89
[2020-10-11 16:34] VITALS: BP 130/71
[2020-10-11 22:23] VITALS: BP 144/94
[2020-10-12] MEDS: AMPICILLIN & SULBACTAM SODIUM 3 GM in SODIUM CHL 0.9% 100 ML IV SCH ×5 (00:35→23:16)
[2020-10-12 05:04] VITALS: BP 143/101
[2020-10-12 05:07] LABS: Hematocrit 35.5 % (41.0-53.0); Mean Corpuscular Hemoglobin 28.1 pg (28.0-32.0); Mean Corpuscular Hgb Conc. 33.7 g/dL (32.0-36.0); Mean Corpuscular Volume 83.4 fL (80.0-100.0); Red Blood Cells 4.26 10^6/uL (4.5-5.90); White Blood Cell 4.6 10^3/uL (4.4-10.8)
[2020-10-12 05:20] LABS: Calcium 9.3 mg/dL (8.5-10.1); Potassium 3.7 mmol/L (3.5-5.1)
[2020-10-12 05:21] LABS: INR 1.02 (0.9-1.15); Partial Thromboplastin Time 30.5 sec (23.0-31.2)
[2020-10-12 05:56] LABS: Band Neutrophils % (manual) 0; Basophils % (manual) 0 (0.0-2.0); Blast Cells 0; Eosinophils % (manual) 0 (0-7); Metamyelocytes % 0; Monocytes % (manual) 0 (0-12); Myelocytes % 0; Promyelocytes % 0; Reactive Lymphocytes 0
[2020-10-12] MEDS: InsuLIN REG 1unit/0.01ml Soln (100units/ml) SC SCH ×4 (06:44→21:48)
[2020-10-12] MEDS: ACCU-CHEK COMFORT CURVE STRIP VI SCH ×4 (06:44→21:42)
[2020-10-12 06:56] LABS: Lymphocytes % (manual) 69 (10.0-50.0)
[2020-10-12] MEDS ORDERED: ceFAZolin 1GM/50ML 100 ML IV ONE (07:00)
[2020-10-12] MEDS ORDERED: ceFAZolin 1GM VL ONE (07:03)
[2020-10-12] MEDS ORDERED: MIDAZOLAM HCL 2MG/2ML 2ml VIAL (1mg/ml) ONE (07:17)
[2020-10-12] MEDS ORDERED: SODIUM CHLORIDE LOCK 10 ML ONE (07:17)
[2020-10-12] MEDS ORDERED: ONDANSETRON HCL 4 MG/2 ML VIAL ONE (07:17)
[2020-10-12] MEDS ORDERED: LIDOCAINE 2% (LOCAL ANESTH.) PF 5ml SDV ONE (07:17)
[2020-10-12] MEDS ORDERED: fentaNYL CITRATE 100 MCG/2 ML VL ONE (07:17)
[2020-10-12] MEDS ORDERED: PROPOFOL 10 MG/ML 20 ML IV ONE (07:17)
[2020-10-12] MEDS ORDERED: METOCLOPRAMIDE HCL 5MG/ml INJ 2ml VIAL IV PRN (07:30)
[2020-10-12] MEDS ORDERED: MORPHINE SULFATE 4 MG/ML SYR/VIAL IV PRN (07:30)
[2020-10-12] MEDS ORDERED: HYDROmorphone HCL 2 MG/ML VL IV PRN (07:30)
[2020-10-12] MEDS ORDERED: HYDROmorphone HCL 2 MG/ML VL ONE (08:47)
[2020-10-12] MEDS: metFORMIN HYDROCHLORIDE 500 MG TAB PO SCH ×2 (09:19→17:17)
[2020-10-12] MEDS: FLUCONAZOLE 200MG/100ML 100 ML IV SCH ×2 (09:20→12:32)
[2020-10-12] MEDS: ATORVASTATIN 20 MG TAB PO SCH (09:20)
[2020-10-12] MEDS: amLODIPine BESYLATE 5 MG TAB PO SCH (09:22)
[2020-10-12] MEDS: BENAZEPRIL HCL 10 MG TAB PO SCH (09:25)
[2020-10-12] MEDS: INSULIN LANTUS (GLARGINE) 1 /0.01ml (100units/ml) SC SCH (09:36)
[2020-10-12 13:00] VITALS: BP 135/85
[2020-10-12 16:30] VITALS: BP 147/95
[2020-10-12 22:00] VITALS: BP 138/96
[2020-10-13 05:00] VITALS: BP 133/87
[2020-10-13] MEDS: AMPICILLIN & SULBACTAM SODIUM 3 GM in SODIUM CHL 0.9% 100 ML IV SCH ×5 (06:11→19:44)
[2020-10-13] MEDS: ACCU-CHEK COMFORT CURVE STRIP VI SCH ×4 (06:33→22:49)
[2020-10-13] MEDS: InsuLIN REG 1unit/0.01ml Soln (100units/ml) SC SCH ×4 (06:34→22:52)
[2020-10-13] MEDS: metFORMIN HYDROCHLORIDE 500 MG TAB PO SCH ×2 (08:30→17:36)
[2020-10-13 09:14] VITALS: BP 141/70
[2020-10-13] MEDS: FLUCONAZOLE 200MG/100ML 100 ML IV SCH ×2 (09:40→11:30)
[2020-10-13] MEDS: ATORVASTATIN 20 MG TAB PO SCH (09:41)
[2020-10-13] MEDS: BENAZEPRIL HCL 10 MG TAB PO SCH (09:41)
[2020-10-13] MEDS: amLODIPine BESYLATE 5 MG TAB PO SCH (09:41)
[2020-10-13] MEDS: INSULIN LANTUS (GLARGINE) 1 /0.01ml (100units/ml) SC SCH (09:44)
[2020-10-13 13:00] VITALS: BP 139/88
[2020-10-13 17:11] VITALS: BP 138/86
[2020-10-13 22:00] VITALS: BP 129/95
[2020-10-14] MEDS: AMPICILLIN & SULBACTAM SODIUM 3 GM in SODIUM CHL 0.9% 100 ML IV SCH ×5 (01:05→23:19)
[2020-10-14 05:00] VITALS: BP 159/98
[2020-10-14 05:30] LABS: Hematocrit 34.4 % (41.0-53.0); Hemoglobin 12.3 g/dL (13.5-17.5); Mean Corpuscular Hemoglobin 29.8 pg (28.0-32.0); Mean Corpuscular Hgb Conc. 35.9 g/dL (32.0-36.0); Red Blood Cells 4.14 10^6/uL (4.5-5.90); Red Cell Distribution Width 13.1 % (11.8-14.3); White Blood Cell 4.5 10^3/uL (4.4-10.8)
[2020-10-14 05:42] LABS: Calcium 9.2 mg/dL (8.5-10.1); Potassium 3.7 mmol/L (3.5-5.1)
[2020-10-14 05:43] LABS: BUN/Creatinine Ratio 19.2
[2020-10-14] MEDS: InsuLIN REG 1unit/0.01ml Soln (100units/ml) SC SCH ×4 (05:52→22:56)
[2020-10-14] MEDS: ACCU-CHEK COMFORT CURVE STRIP VI SCH ×4 (05:52→22:53)
[2020-10-14 06:06] LABS: Basophils % (manual) 0 (0.0-2.0); Blast Cells 0; Metamyelocytes % 0; Myelocytes % 0; Promyelocytes % 0; Reactive Lymphocytes 0
[2020-10-14 07:01] LABS: Band Neutrophils % (manual) 3; Eosinophils % (manual) 2 (0-7); Lymphocytes % (manual) 66 (10.0-50.0); Monocytes % (manual) 4 (0-12)
[2020-10-14] MEDS: metFORMIN HYDROCHLORIDE 500 MG TAB PO SCH ×2 (08:11→17:41)
[2020-10-14 08:53] VITALS: BP 151/101
[2020-10-14] MEDS: amLODIPine BESYLATE 5 MG TAB PO SCH (10:38)
[2020-10-14] MEDS: ATORVASTATIN 20 MG TAB PO SCH (10:38)
[2020-10-14] MEDS: FLUCONAZOLE 200MG/100ML 100 ML IV SCH ×2 (10:38→11:05)
[2020-10-14] MEDS: BENAZEPRIL HCL 10 MG TAB PO SCH (10:39)
[2020-10-14] MEDS: INSULIN LANTUS (GLARGINE) 1 /0.01ml (100units/ml) SC SCH (10:40)
[2020-10-14 13:00] VITALS: BP 127/87
[2020-10-14 16:53] VITALS: BP 125/90
[2020-10-14 22:00] VITALS: BP 138/94
[2020-10-15 05:00] VITALS: BP 132/87
[2020-10-15] MEDS: AMPICILLIN & SULBACTAM SODIUM 3 GM in SODIUM CHL 0.9% 100 ML IV SCH ×3 (06:01→17:31)
[2020-10-15 06:02] LABS: Hematocrit 34.5 % (41.0-53.0); Hemoglobin 11.9 g/dL (13.5-17.5); Mean Corpuscular Hemoglobin 28.6 pg (28.0-32.0); Mean Corpuscular Hgb Conc. 34.5 g/dL (32.0-36.0); Mean Corpuscular Volume 82.7 fL (80.0-100.0); Red Blood Cells 4.17 10^6/uL (4.5-5.90); White Blood Cell 4.7 10^3/uL (4.4-10.8)
[2020-10-15 06:16] LABS: Band Neutrophils % (manual) 0; Basophils % (manual) 0 (0.0-2.0); Blast Cells 0; Metamyelocytes % 0; Myelocytes % 0; Promyelocytes % 0; Reactive Lymphocytes 0
[2020-10-15] MEDS: ACCU-CHEK COMFORT CURVE STRIP VI SCH ×4 (06:26→22:04)
[2020-10-15] MEDS: InsuLIN REG 1unit/0.01ml Soln (100units/ml) SC SCH ×4 (06:27→22:06)
[2020-10-15 06:29] LABS: Potassium 3.7 mmol/L (3.5-5.1)
[2020-10-15 06:33] LABS: BUN/Creatinine Ratio 22.2; Calcium 9.2 mg/dL (8.5-10.1)
[2020-10-15 08:01] LABS: Eosinophils % (manual) 1 (0-7); Lymphocytes % (manual) 70 (10.0-50.0); Monocytes % (manual) 4 (0-12)
[2020-10-15] MEDS: metFORMIN HYDROCHLORIDE 500 MG TAB PO SCH ×2 (08:25→17:30)
[2020-10-15 09:00] VITALS: BP 129/89
[2020-10-15] MEDS: BENAZEPRIL HCL 10 MG TAB PO SCH (10:25)
[2020-10-15] MEDS: FLUCONAZOLE 200MG/100ML 100 ML IV SCH ×2 (10:25→11:54)
[2020-10-15] MEDS: amLODIPine BESYLATE 5 MG TAB PO SCH (10:25)
[2020-10-15] MEDS: ATORVASTATIN 20 MG TAB PO SCH (10:25)
[2020-10-15] MEDS: INSULIN LANTUS (GLARGINE) 1 /0.01ml (100units/ml) SC SCH (10:26)
[2020-10-15 12:46] VITALS: BP 144/87
[2020-10-15 16:37] VITALS: BP 116/83
[2020-10-15 22:00] VITALS: BP 128/84
[2020-10-16 05:00] VITALS: BP 127/86
[2020-10-16] MEDS: AMPICILLIN & SULBACTAM SODIUM 3 GM in SODIUM CHL 0.9% 100 ML IV SCH ×6 (06:00→23:56)
[2020-10-16] MEDS: ACCU-CHEK COMFORT CURVE STRIP VI SCH ×4 (06:38→22:11)
[2020-10-16] MEDS: InsuLIN REG 1unit/0.01ml Soln (100units/ml) SC SCH ×4 (06:39→22:04)
[2020-10-16] MEDS: metFORMIN HYDROCHLORIDE 500 MG TAB PO SCH ×2 (07:54→17:50)
[2020-10-16 09:00] VITALS: BP 139/96
[2020-10-16] MEDS: BENAZEPRIL HCL 10 MG TAB PO SCH (10:15)
[2020-10-16] MEDS: FLUCONAZOLE 200MG/100ML 100 ML IV SCH ×2 (10:15→11:08)
[2020-10-16] MEDS: ATORVASTATIN 20 MG TAB PO SCH (10:15)
[2020-10-16] MEDS: INSULIN LANTUS (GLARGINE) 1 /0.01ml (100units/ml) SC SCH (10:16)
[2020-10-16] MEDS: amLODIPine BESYLATE 5 MG TAB PO SCH (10:16)
[2020-10-16 13:00] VITALS: BP 130/88
[2020-10-16 16:49] VITALS: BP 103/68
[2020-10-16 21:29] VITALS: BP 139/96
[2020-10-17 05:00] VITALS: BP 150/105
[2020-10-17] MEDS: AMPICILLIN & SULBACTAM SODIUM 3 GM in SODIUM CHL 0.9% 100 ML IV SCH ×3 (05:30→18:59)
[2020-10-17] MEDS: ACCU-CHEK COMFORT CURVE STRIP VI SCH ×4 (06:33→21:51)
[2020-10-17] MEDS: InsuLIN REG 1unit/0.01ml Soln (100units/ml) SC SCH ×4 (06:33→21:59)
[2020-10-17 08:34] VITALS: BP 136/93
[2020-10-17] MEDS: metFORMIN HYDROCHLORIDE 500 MG TAB PO SCH ×2 (08:54→18:58)
[2020-10-17] MEDS: INSULIN LANTUS (GLARGINE) 1 /0.01ml (100units/ml) SC SCH (10:00)
[2020-10-17] MEDS: ATORVASTATIN 20 MG TAB PO SCH (12:48)
[2020-10-17] MEDS: amLODIPine BESYLATE 5 MG TAB PO SCH (12:49)
[2020-10-17] MEDS: BENAZEPRIL HCL 10 MG TAB PO SCH (12:50)
[2020-10-17 13:00] VITALS: BP 129/94
[2020-10-17 16:57] VITALS: BP 136/95
[2020-10-17 22:00] VITALS: BP 122/83
[2020-10-18] MEDS: AMPICILLIN & SULBACTAM SODIUM 3 GM in SODIUM CHL 0.9% 100 ML IV SCH ×4 (00:51→18:00)
[2020-10-18] MEDS: ACCU-CHEK COMFORT CURVE STRIP VI SCH ×4 (06:00→21:39)
[2020-10-18] MEDS: InsuLIN REG 1unit/0.01ml Soln (100units/ml) SC SCH ×4 (06:11→21:40)
[2020-10-18] MEDS: metFORMIN HYDROCHLORIDE 500 MG TAB PO SCH ×2 (08:00→19:23)
[2020-10-18 09:00] VITALS: BP 145/96
[2020-10-18] MEDS: BENAZEPRIL HCL 10 MG TAB PO SCH (09:45)
[2020-10-18] MEDS: ATORVASTATIN 20 MG TAB PO SCH (09:46)
[2020-10-18] MEDS: amLODIPine BESYLATE 5 MG TAB PO SCH (09:46)
[2020-10-18 13:00] VITALS: BP 127/76
[2020-10-18] MEDS: INSULIN LANTUS (GLARGINE) 1 /0.01ml (100units/ml) SC SCH (13:17)
[2020-10-18] MEDS ORDERED: traMADol HCL 50 MG TAB ONE (16:08)
[2020-10-18 16:35] VITALS: BP 111/78
[2020-10-18 22:00] VITALS: BP 123/85
[2020-10-19] MEDS: AMPICILLIN & SULBACTAM SODIUM 3 GM in SODIUM CHL 0.9% 100 ML IV SCH ×5 (00:23→23:22)
[2020-10-19 05:00] VITALS: BP 141/90
[2020-10-19] MEDS: ACCU-CHEK COMFORT CURVE STRIP VI SCH ×4 (06:01→21:43)
[2020-10-19] MEDS: InsuLIN REG 1unit/0.01ml Soln (100units/ml) SC SCH ×4 (06:01→21:45)
[2020-10-19 09:00] VITALS: BP 133/87
[2020-10-19] MEDS: metFORMIN HYDROCHLORIDE 500 MG TAB PO SCH ×2 (09:11→17:46)
[2020-10-19] MEDS: ATORVASTATIN 20 MG TAB PO SCH (09:12)
[2020-10-19] MEDS: amLODIPine BESYLATE 5 MG TAB PO SCH (09:12)
[2020-10-19] MEDS: BENAZEPRIL HCL 10 MG TAB PO SCH (09:13)
[2020-10-19] MEDS: INSULIN LANTUS (GLARGINE) 1 /0.01ml (100units/ml) SC SCH (10:03)
[2020-10-19 13:00] VITALS: BP 118/73
[2020-10-19 16:55] VITALS: BP 109/73
[2020-10-19 21:06] VITALS: BP 133/93
[2020-10-20 04:37] VITALS: BP 141/95
[2020-10-20] MEDS: AMPICILLIN & SULBACTAM SODIUM 3 GM in SODIUM CHL 0.9% 100 ML IV SCH ×3 (05:05→16:59)
[2020-10-20] MEDS: InsuLIN REG 1unit/0.01ml Soln (100units/ml) SC SCH ×3 (06:20→17:04)
[2020-10-20] MEDS: ACCU-CHEK COMFORT CURVE STRIP VI SCH ×3 (06:20→17:04)
[2020-10-20] MEDS: amLODIPine BESYLATE 5 MG TAB PO SCH (08:40)
[2020-10-20] MEDS: ATORVASTATIN 20 MG TAB PO SCH (08:41)
[2020-10-20] MEDS: BENAZEPRIL HCL 10 MG TAB PO SCH (08:41)
[2020-10-20] MEDS: metFORMIN HYDROCHLORIDE 500 MG TAB PO SCH ×2 (08:41→16:58)
[2020-10-20] MEDS: INSULIN LANTUS (GLARGINE) 1 /0.01ml (100units/ml) SC SCH (08:45)
[2020-10-20 09:00] VITALS: BP 146/92
[2020-10-20 13:00] VITALS: BP 118/73
== END 2020-10-20 19:46 | DRG 312 ==
LOC: ER 17:24 → EDBD 17:24 → UNDOADMIN 22:44 → ICU WEST 22:44 → TELE 09-26 02:26 → TELE-CENTR 09-26 09:17 → CENTRAL 10-08 20:40
PROVIDERS: ADMIT Nurse Practitioner; ATTEND Internal Medicine Pulmonary Disease
PROC: 0JBQ0ZZ Excision of Right Foot Subcutaneous Tissue and Fascia, Open Approach (ICD-10-PCS; 2020-09-28)
PROC: 0Y9M0ZX Drainage of Right Foot, Open Approach, Diagnostic (ICD-10-PCS; principal; 2020-09-28 13:50)
PROC: 0HRMXK3 Replacement of Right Foot Skin with Nonautologous Tissue Substitute, Full Thickness, External Approach (ICD-10-PCS; 2020-10-12)
DX: E11.69 Type 2 diabetes mellitus with other specified complication (principal); M86.8X7 Other osteomyelitis, ankle and foot; N17.0 Acute kidney failure with tubular necrosis; R65.11 Systemic inflammatory response syndrome (SIRS) of non-infectious origin with acute organ dysfunction; E11.621 Type 2 diabetes mellitus with foot ulcer; E11.65 Type 2 diabetes mellitus with hyperglycemia; I16.0 Hypertensive urgency; R06.03 Acute respiratory distress; L03.115 Cellulitis of right lower limb; L97.519 Non-pressure chronic ulcer of other part of right foot with unspecified severity; F79 Unspecified intellectual disabilities; L02.611 Cutaneous abscess of right foot; Z20.822 Contact with and (suspected) exposure to COVID-19; Z83.3 Family history of diabetes mellitus
CPT/HCPCS: 36415; 71045; 73700; 73718; 80048; 80053; 81001; 82010; 82962; 83036; 83735; 84443; 85007; 85025; 85027; 85049; 85610; 85730; 86850; 86900; 86901; 87070; 87075; 87077; 87081; 87186; 87205; 87426; 93005; 93926; 96361; 96365; 96366; 96368; 96372; 97110; 97116; 97163; 97530; G0378; J0690; J0696; J1450; J1815; J1956; J2001; J2248; J2250; J2405; J2704; J3490

== ENCOUNTER 2020-11-29 16:11 | Inpatient (IN) | payer MEDICAID ==
[~2020-11-29] VITALS: Ht 165.1 cm; Wt 87.0 kg
[2020-11-29] MEDS: hydrALAZINE HCL 25 MG TAB PO SCH (05:00)
[~2020-11-29 16:11] MED LIST: ATOR40TA52 PO; BENA40TA8 PO; HYDR100T22 PO; INSU1INJ19 SC; METF-929 PO
[2020-11-29] MEDS ORDERED: SODIUM CHLORIDE 0.9% 1,000 ML IV ONE ×2 (19:00)
[2020-11-29] MEDS ORDERED: PIPERACILLIN-TAZOB 3.375GM 100 ML IV ONE (19:00)
[2020-11-29 20:06] LABS: Basophils # (auto) 0 10 ^3/uL (0-0.2); Basophils % (auto) 0.5 % (0.0-2.0); Eosinophils # (auto) 0 10 ^3/uL (0-0.8); Eosinophils % (auto) 0.3 % (0.0-7.0); Hematocrit 42.1 % (41.0-53.0); Hemoglobin 14.7 g/dL (13.5-17.5); Lymphocytes # (auto) 2.7 10 ^3/uL (0.4-5.4); Lymphocytes % (auto) 44.8 % (10.0-50.0); Mean Corpuscular Hemoglobin 28.1 pg (28.0-32.0); Mean Corpuscular Hgb Conc. 34.9 g/dL (32.0-36.0); Mean Corpuscular Volume 80.6 fL (80.0-100.0); Monocytes # (auto) 0.3 10 ^3/uL (0-1.3); Monocytes % (auto) 5.6 % (0.0-12.0); Neutrophils % (auto) 48.8 % (37.0-80.0); Nucleated Red Blood Cells % 0.1 %; Red Blood Cells 5.22 10^6/uL (4.5-5.90); Red Cell Distribution Width 12.8 % (11.8-14.3); White Blood Cell 6.1 10^3/uL (4.4-10.8)
[2020-11-29 20:13] LABS: Lactic Acid w/Reflex 3.1 mmol/L (0.4-2.0)
[2020-11-29 20:27] LABS: INR 0.99 (0.9-1.15); Partial Thromboplastin Time 28.8 sec (23.6-33.0)
[2020-11-29] MEDS ORDERED: ONDANSETRON HCL 4 MG/2 ML VIAL IV PRN (21:00)
[2020-11-29] MEDS ORDERED: TEMAZEPAM 15 MG CAP PO PRN (21:00)
[2020-11-29] MEDS ORDERED: ACETAMINOPHEN 325 MG TAB PO PRN (21:00)
[2020-11-29] MEDS ORDERED: DEXTROSE (50%) 50ML SYRG IV PRN (21:00)
[2020-11-29 21:35] LABS: Albumin 3.4 g/dL (3.4-5.0); Anion Gap 13 (5-15); Blood Urea Nitrogen 29 mg/dL (7-18); Calcium 9.2 mg/dL (8.5-10.1); Carbon Dioxide 19 mmol/L (21-32); Chloride 101 mmol/L (98-107); Potassium 4.5 mmol/L (3.5-5.1); Sodium 133 mmol/L (136-145)
[2020-11-29 21:37] LABS: Alanine Aminotransferase 56 U/L (16-61); Aspartate Aminotransferase 15 U/L (15-37); GFR African American 64 mL/min; GFR Non-African American 53 mL/min
[2020-11-29 21:41] LABS: Alkaline Phosphatase 120 U/L (45-117); Bilirubin, Total 0.2 mg/dL (0.2-1.0)
[2020-11-29 21:47] LABS: Glucose 440 mg/dL (74-106)
[2020-11-29] MEDS ORDERED: CLINDAMYCIN 600MG IV 50 ML IV ONE (23:30)
[2020-11-30] MEDS: ACCU-CHEK COMFORT CURVE STRIP VI SCH ×6 (04:41→23:52)
[2020-11-30] MEDS: InsuLIN REG 1unit/0.01ml Soln (100units/ml) SC SCH ×6 (04:42→23:54)
[2020-11-30 07:24] LABS: Basophils # (auto) 0 10 ^3/uL (0-0.2); Basophils % (auto) 0.8 % (0.0-2.0); Eosinophils # (auto) 0 10 ^3/uL (0-0.8); Eosinophils % (auto) 0.2 % (0.0-7.0); Hematocrit 44.6 % (41.0-53.0); Hemoglobin 14.9 g/dL (13.5-17.5); Lymphocytes # (auto) 2.1 10 ^3/uL (0.4-5.4); Lymphocytes % (auto) 40.6 % (10.0-50.0); Mean Corpuscular Hemoglobin 27.4 pg (28.0-32.0); Mean Corpuscular Hgb Conc. 33.5 g/dL (32.0-36.0); Monocytes # (auto) 0.3 10 ^3/uL (0-1.3); Neutrophils # (auto) 2.8 10 ^3/uL (1.6-8.6); Neutrophils % (auto) 53.4 % (37.0-80.0); Nucleated Red Blood Cells % 0.1 %; Red Blood Cells 5.44 10^6/uL (4.5-5.90); Red Cell Distribution Width 12.6 % (11.8-14.3); White Blood Cell 5.2 10^3/uL (4.4-10.8)
[2020-11-30 07:50] LABS: BUN/Creatinine Ratio 23.5; Calcium 9.8 mg/dL (8.5-10.1); Potassium 4.5 mmol/L (3.5-5.1)
[2020-11-30] MEDS ORDERED: InsuLIN REG 1unit/0.01ml Soln (100units/ml) IV ONE (08:30)
[2020-11-30] MEDS ORDERED: DEXTROSE (50%) 50ML SYRG IV PRN (08:30)
[2020-11-30] MEDS: cefTRIAXone 1GM/50ML D5W 50 ML IV SCH (09:00)
[2020-11-30] MEDS: SODIUM CHLORIDE 0.9% 1,000 ML IV SCH ×3 (09:37→14:57)
[2020-11-30] MEDS: CLINDAMYCIN 600MG IV 50 ML IV SCH ×3 (09:37→14:57)
[2020-11-30] MEDS: PANTOPRAZOLE 40 MG TAB PO SCH (10:00)
[2020-11-30] MEDS: INSULIN LANTUS (GLARGINE) 1 /0.01ml (100units/ml) SC SCH (10:00)
[2020-11-30] MEDS: hydrALAZINE HCL 25 MG TAB PO SCH ×2 (10:00→21:10)
[2020-11-30] MEDS ORDERED: fentaNYL CITRATE 100 MCG/2 ML VL ONE (10:52)
[2020-11-30] MEDS ORDERED: MEPERIDINE HCL (25 MG/ML) 1ML VIAL ONE (10:52)
[2020-11-30] MEDS ORDERED: MIDAZOLAM HCL 2MG/2ML 2ml VIAL (1mg/ml) ONE (10:53)
[2020-11-30] MEDS ORDERED: BUPIVACAINE 0.25% INJ 50ML VIAL ONE (11:02)
[2020-11-30] MEDS ORDERED: ceFAZolin 1GM VL ONE (11:05)
[2020-11-30] MEDS ORDERED: PROPOFOL 10 MG/ML 20 ML IV ONE (12:41)
[2020-11-30] MEDS ORDERED: ePHEDrine SULFATE 50 MG/ML AMP IV PRN (13:45)
[2020-11-30] MEDS ORDERED: HYDROmorphone HCL 2 MG/ML VL IV PRN (13:45)
[2020-11-30] MEDS ORDERED: LABETALOL HCL 5 MG/ML 4ML SYRINGE IV PRN (13:45)
[2020-11-30] MEDS ORDERED: ONDANSETRON HCL 4 MG/2 ML VIAL IV PRN (13:45)
[2020-11-30] MEDS ORDERED: ACCU-CHEK COMFORT CURVE STRIP VI ONE (13:45)
[2020-11-30] MEDS ORDERED: MORPHINE SULFATE 4 MG/ML SYR/VIAL IV PRN (13:45)
[2020-11-30] MEDS ORDERED: MIDAZOLAM HCL 2MG/2ML 2ml VIAL (1mg/ml) IV PRN (13:45)
[2020-11-30 17:16] VITALS: BP 134/86
[2020-11-30] MEDS: HYDROcodone-ACET 5/325MG TAB PO PRN (19:04)
[2020-11-30] MEDS: ATORVASTATIN 20 MG TAB PO SCH ×2 (21:09)
[2020-11-30 22:00] VITALS: BP 148/94
[2020-12-01] VITALS (7 sets, daily range): BP systolic 111–167; BP diastolic 68–102
[2020-12-01] MEDS: ACCU-CHEK COMFORT CURVE STRIP VI SCH ×4 (04:11→22:26)
[2020-12-01] MEDS: InsuLIN REG 1unit/0.01ml Soln (100units/ml) SC SCH ×5 (04:13→22:46)
[2020-12-01] MEDS: CLINDAMYCIN 600MG IV 50 ML IV SCH ×3 (05:42→22:26)
[2020-12-01] MEDS: HYDROcodone-ACET 5/325MG TAB PO PRN ×3 (05:42→15:32)
[2020-12-01 06:58] LABS: Urine Bacteria NONE SEEN /hpf (None Seen); Urine Blood Negative /uL (Negative); Urine Specific Gravity 1.018 (1.001-1.035); Urine WBC 2 /hpf (0 - 3)
[2020-12-01] MEDS: cefTRIAXone 1GM/50ML D5W 50 ML IV SCH (09:46)
[2020-12-01] MEDS: hydrALAZINE HCL 25 MG TAB PO SCH ×2 (09:47→22:26)
[2020-12-01] MEDS: PANTOPRAZOLE 40 MG TAB PO SCH (09:48)
[2020-12-01] MEDS ORDERED: DEXTROSE (50%) 50ML SYRG IV PRN ×2 (10:00)
[2020-12-01] MEDS: INSULIN LANTUS (GLARGINE) 1 /0.01ml (100units/ml) SC SCH ×2 (10:09→22:46)
[2020-12-01] MEDS ORDERED: ACCU-CHEK COMFORT CURVE STRIP VI SCH (11:30)
[2020-12-01] MEDS ORDERED: LABETALOL HCL 5 MG/ML 4ML SYRINGE IV ONE (18:30)
[2020-12-01] MEDS ORDERED: LOSARTAN POTASSIUM 50 MG TAB PO ONE (19:15)
[2020-12-01] MEDS ORDERED: InsuLIN REG 1unit/0.01ml Soln (100units/ml) SC SCH (22:00)
[2020-12-01] MEDS: ATORVASTATIN 20 MG TAB PO SCH (22:26)
[2020-12-02] MEDS: CLINDAMYCIN 600MG IV 50 ML IV SCH ×3 (06:21→21:57)
[2020-12-02] MEDS: ACCU-CHEK COMFORT CURVE STRIP VI SCH ×4 (06:21→22:05)
[2020-12-02] MEDS: InsuLIN REG 1unit/0.01ml Soln (100units/ml) SC SCH ×4 (06:43→22:07)
[2020-12-02 09:00] VITALS: BP 122/82
[2020-12-02] MEDS: cefTRIAXone 1GM/50ML D5W 50 ML IV SCH (09:27)
[2020-12-02] MEDS: PANTOPRAZOLE 40 MG TAB PO SCH (09:28)
[2020-12-02] MEDS: hydrALAZINE HCL 25 MG TAB PO SCH ×2 (09:28→22:03)
[2020-12-02] MEDS: INSULIN LANTUS (GLARGINE) 1 /0.01ml (100units/ml) SC SCH ×2 (09:28→22:07)
[2020-12-02 17:00] VITALS: BP 129/87
[2020-12-02 22:00] VITALS: BP 164/98
[2020-12-02] MEDS: ATORVASTATIN 20 MG TAB PO SCH (22:03)
[2020-12-02] MEDS: LOSARTAN POTASSIUM 50 MG TAB PO SCH (22:04)
[2020-12-03] MEDS: hydrALAZINE HCL 20 MG/ML VL IV PRN (00:43)
[2020-12-03 01:00] VITALS: BP 150/89
[2020-12-03 05:00] VITALS: BP 137/98
[2020-12-03] MEDS: CLINDAMYCIN 600MG IV 50 ML IV SCH (05:15)
[2020-12-03] MEDS: ACCU-CHEK COMFORT CURVE STRIP VI SCH ×4 (05:24→22:18)
[2020-12-03] MEDS: InsuLIN REG 1unit/0.01ml Soln (100units/ml) SC SCH ×4 (05:24→22:18)
[2020-12-03 09:00] VITALS: BP 138/95
[2020-12-03] MEDS: PANTOPRAZOLE 40 MG TAB PO SCH (09:55)
[2020-12-03] MEDS: cefTRIAXone 1GM/50ML D5W 50 ML IV SCH (09:55)
[2020-12-03] MEDS: hydrALAZINE HCL 25 MG TAB PO SCH (09:56)
[2020-12-03] MEDS: INSULIN LANTUS (GLARGINE) 1 /0.01ml (100units/ml) SC SCH ×2 (10:05→22:17)
[2020-12-03] MEDS ORDERED: HCTZ 25 MG TAB PO ONE (12:15)
[2020-12-03] MEDS: LINEZOLID 600MG TABLET PO SCH ×2 (16:18→22:10)
[2020-12-03 16:30] VITALS: BP 143/92
[2020-12-03 22:00] VITALS: BP 156/105
[2020-12-03] MEDS: ATORVASTATIN 20 MG TAB PO SCH (22:09)
[2020-12-03] MEDS: LOSARTAN POTASSIUM 50 MG TAB PO SCH (22:52)
[2020-12-04] MEDS: hydrALAZINE HCL 20 MG/ML VL IV PRN (01:33)
[2020-12-04 05:00] VITALS: BP 131/71
[2020-12-04] MEDS: InsuLIN REG 1unit/0.01ml Soln (100units/ml) SC SCH ×4 (06:18→21:12)
[2020-12-04] MEDS: ACCU-CHEK COMFORT CURVE STRIP VI SCH ×4 (06:26→22:00)
[2020-12-04] MEDS: PANTOPRAZOLE 40 MG TAB PO SCH (09:52)
[2020-12-04] MEDS: LINEZOLID 600MG TABLET PO SCH ×2 (09:52→21:12)
[2020-12-04] MEDS: HCTZ 25 MG TAB PO SCH (09:56)
[2020-12-04] MEDS: INSULIN LANTUS (GLARGINE) 1 /0.01ml (100units/ml) SC SCH ×2 (09:57→21:10)
[2020-12-04 13:22] VITALS: BP 132/79
[2020-12-04 20:00] VITALS: BP 141/97
[2020-12-04] MEDS: ATORVASTATIN 20 MG TAB PO SCH (21:09)
[2020-12-04] MEDS: LOSARTAN POTASSIUM 50 MG TAB PO SCH (21:19)
[2020-12-05 05:00] VITALS: BP 143/95
[2020-12-05] MEDS: InsuLIN REG 1unit/0.01ml Soln (100units/ml) SC SCH ×2 (06:20→11:52)
[2020-12-05] MEDS: ACCU-CHEK COMFORT CURVE STRIP VI SCH ×2 (06:21→11:52)
[2020-12-05] MEDS ORDERED: INSULIN LANTUS (GLARGINE) 1 /0.01ml (100units/ml) SC SCH ×2 (07:00→22:00)
[2020-12-05 09:00] VITALS: BP 119/69
[2020-12-05] MEDS: PANTOPRAZOLE 40 MG TAB PO SCH (09:11)
[2020-12-05] MEDS: HCTZ 25 MG TAB PO SCH (09:12)
[2020-12-05] MEDS ORDERED: LINEZOLID 600MG/300ML 300 ML IV SCH (12:27)
[2020-12-05 13:00] VITALS: BP_SYST 113; BP_SYST 119; BP_DIAS 69; BP_DIAS 82
[2020-12-05] MEDS ORDERED: HYDR25TA5 PO (14:16)
[2020-12-05] MEDS ORDERED: INSLANTI SC (14:16)
[2020-12-05] MEDS ORDERED: LOSA-69 PO (14:16)
[2020-12-05 16:19] VITALS: BP 113/82
[2020-12-06] MEDS ORDERED: LINEZOLID 600MG TABLET PO SCH (10:00)
== END 2020-12-05 17:50 | disposition home or self-care (01) | DRG 312 ==
LOC: ER 16:11 → TELE 20:58 → TELE-WESTW 11-30 17:54
PROVIDERS: ADMIT Nurse Practitioner; ATTEND Internal Medicine
PROC: 0HRMXK4 Replacement of Right Foot Skin with Nonautologous Tissue Substitute, Partial Thickness, External Approach (ICD-10-PCS; 2020-11-30)
PROC: 0JBQ0ZZ Excision of Right Foot Subcutaneous Tissue and Fascia, Open Approach (ICD-10-PCS; principal; 2020-11-30 12:36)
DX: E11.621 Type 2 diabetes mellitus with foot ulcer (principal); M86.9 Osteomyelitis, unspecified; N17.0 Acute kidney failure with tubular necrosis; L03.115 Cellulitis of right lower limb; L97.519 Non-pressure chronic ulcer of other part of right foot with unspecified severity; B95.2 Enterococcus as the cause of diseases classified elsewhere; E11.69 Type 2 diabetes mellitus with other specified complication; E11.65 Type 2 diabetes mellitus with hyperglycemia; I10 Essential (primary) hypertension; Z20.822 Contact with and (suspected) exposure to COVID-19; Z83.3 Family history of diabetes mellitus; Z79.84 Long term (current) use of oral hypoglycemic drugs
CPT/HCPCS: 36415; 71045; 73700; 80048; 80053; 81001; 82962; 83605; 84484; 85025; 85610; 85730; 87040; 87070; 87075; 87077; 87186; 87205; 87426; 96365; 96366; 96372; 96375; G0378; J0690; J0696; J1815; J2250; J2543; J2704; J3490

== ENCOUNTER 2021-07-14 19:25 | Inpatient (IN) | payer MEDICAID, OTHER ==
[~2021-07-14] VITALS: Ht 167.6 cm; Wt 78.1 kg
[~2021-07-14 19:25] MED LIST changes: -BENA40TA8 PO; +HYDR25TA5 PO; +INSLANTI SC; +LOSA-69 PO
[2021-07-15 04:30] LABS: Basophils # (auto) 0.1 10 ^3/uL (0-0.2); Eosinophils # (auto) 0 10 ^3/uL (0-0.8); Hemoglobin 12.9 g/dL (13.5-17.5); Mean Corpuscular Volume 84.2 fL (80.0-100.0); Neutrophils # (auto) 6.7 10 ^3/uL (1.6-8.6); Red Cell Distribution Width 12.9 % (11.8-14.3); White Blood Cell 9.7 10^3/uL (4.4-10.8)
[2021-07-15 04:32] LABS: Eosinophils % (auto) 0.4 % (0.0-7.0); Hematocrit 37.8 % (41.0-53.0); Lymphocytes # (auto) 1.9 10 ^3/uL (0.4-5.4); Lymphocytes % (auto) 19.2 % (10.0-50.0); Mean Corpuscular Hemoglobin 28.7 pg (28.0-32.0); Mean Corpuscular Hgb Conc. 34.1 g/dL (32.0-36.0); Monocytes % (auto) 10.6 % (0.0-12.0); Neutrophils % (auto) 68.8 % (37.0-80.0); Nucleated Red Blood Cells % 0.2 %
[2021-07-15 04:57] LABS: Albumin 2.8 g/dL (3.4-5.0); Calcium 10.1 mg/dL (8.5-10.1); Potassium 4.3 mmol/L (3.5-5.1)
[2021-07-15 04:59] LABS: Bilirubin, Total 0.5 mg/dL (0.2-1.0); Total Protein 9.4 g/dL (6.4-8.2)
[2021-07-15 05:34] LABS: BUN/Creatinine Ratio 22.1
[2021-07-15] MEDS ORDERED: PIPERACILLIN-TAZOB 3.375GM 100 ML IV ONE (05:45)
[2021-07-15] MEDS ORDERED: VANCOMYCIN 1GM/250ML 250 ML IV ONE (05:45)
[2021-07-15] MEDS ORDERED: InsuLIN REG 1unit/0.01ml Soln (100units/ml) SC ONE (06:00)
[2021-07-15] MEDS ORDERED: ACETAMINOPHEN 325 MG TAB PO PRN (06:15)
[2021-07-15] MEDS ORDERED: ONDANSETRON HCL 4 MG/2 ML VIAL IV PRN (06:15)
[2021-07-15] MEDS ORDERED: DEXTROSE (50%) 50ML SYRG IV PRN (06:15)
[2021-07-15] MEDS: ACCU-CHEK COMFORT CURVE STRIP VI SCH ×4 (08:00→20:43)
[2021-07-15] MEDS: InsuLIN REG 1unit/0.01ml Soln (100units/ml) SC SCH ×4 (08:39→20:44)
[2021-07-15] MEDS: cefTRIAXone 1GM/50ML D5W 50 ML IV SCH (09:43)
[2021-07-15] MEDS: ENOXAPARIN SOD 40 MG/0.4 ML SYRINGE SC SCH (10:12)
[2021-07-15] MEDS: LOSARTAN POTASSIUM 50 MG TAB PO SCH (10:13)
[2021-07-15] MEDS: HCTZ 25 MG TAB PO SCH (10:13)
[2021-07-15] MEDS: PANTOPRAZOLE 40 MG TAB PO SCH (10:13)
[2021-07-15] MEDS ORDERED: SODIUM CHLORIDE 0.9% 1,000 ML IV ONE (12:00)
[2021-07-15 12:46] VITALS: BP 156/90
[2021-07-15] MEDS: CLINDAMYCIN 600MG IV 50 ML IV SCH ×2 (15:53→22:50)
[2021-07-15 17:00] VITALS: BP 166/107
[2021-07-15 18:15] VITALS: BP 157/90
[2021-07-15 21:49] VITALS: BP 108/72
[2021-07-15] MEDS: ATORVASTATIN 20 MG TAB PO SCH (22:50)
[2021-07-16] MEDS: ACCU-CHEK COMFORT CURVE STRIP VI SCH ×6 (00:46→20:15)
[2021-07-16] MEDS: InsuLIN REG 1unit/0.01ml Soln (100units/ml) SC SCH ×6 (00:47→20:17)
[2021-07-16 05:16] VITALS: BP 168/110
[2021-07-16] MEDS: CLINDAMYCIN 600MG IV 50 ML IV SCH ×3 (06:00→22:47)
[2021-07-16 09:00] VITALS: BP 162/117
[2021-07-16] MEDS: ENOXAPARIN SOD 40 MG/0.4 ML SYRINGE SC SCH (09:32)
[2021-07-16] MEDS: PANTOPRAZOLE 40 MG TAB PO SCH (09:32)
[2021-07-16] MEDS: HCTZ 25 MG TAB PO SCH (09:32)
[2021-07-16] MEDS: cefTRIAXone 1GM/50ML D5W 50 ML IV SCH (09:32)
[2021-07-16] MEDS: LOSARTAN POTASSIUM 50 MG TAB PO SCH (09:33)
[2021-07-16 12:35] LABS: Eosinophils # (auto) 0 10 ^3/uL (0-0.8); Hematocrit 34.7 % (41.0-53.0); Nucleated Red Blood Cells % 0.1 %
[2021-07-16 12:37] LABS: Basophils # (auto) 0.1 10 ^3/uL (0-0.2); Basophils % (auto) 0.7 % (0.0-2.0); Eosinophils % (auto) 0.6 % (0.0-7.0); Hemoglobin 11.8 g/dL (13.5-17.5); Lymphocytes % (auto) 25.8 % (10.0-50.0); Mean Corpuscular Hemoglobin 28.3 pg (28.0-32.0); Mean Corpuscular Hgb Conc. 34.1 g/dL (32.0-36.0); Monocytes # (auto) 0.6 10 ^3/uL (0-1.3); Monocytes % (auto) 7.3 % (0.0-12.0); Neutrophils % (auto) 65.6 % (37.0-80.0); Red Blood Cells 4.18 10^6/uL (4.5-5.90); Red Cell Distribution Width 13.2 % (11.8-14.3); White Blood Cell 7.7 10^3/uL (4.4-10.8)
[2021-07-16 12:48] LABS: Albumin 2.6 g/dL (3.4-5.0); Calcium 9.8 mg/dL (8.5-10.1); Potassium 4.1 mmol/L (3.5-5.1)
[2021-07-16 12:52] LABS: Bilirubin, Total 0.5 mg/dL (0.2-1.0)
[2021-07-16 14:00] VITALS: BP 150/99
[2021-07-16 17:00] VITALS: BP 145/97
[2021-07-16 22:00] VITALS: BP 196/126
[2021-07-16] MEDS: ATORVASTATIN 20 MG TAB PO SCH (22:48)
[2021-07-17] MEDS: ACCU-CHEK COMFORT CURVE STRIP VI SCH ×6 (00:13→20:32)
[2021-07-17] MEDS: InsuLIN REG 1unit/0.01ml Soln (100units/ml) SC SCH ×6 (00:15→20:33)
[2021-07-17 05:00] VITALS: BP 152/98
[2021-07-17 05:48] LABS: Basophils # (auto) 0 10 ^3/uL (0-0.2); Basophils % (auto) 0.6 % (0.0-2.0); Eosinophils # (auto) 0.1 10 ^3/uL (0-0.8); Hematocrit 31.7 % (41.0-53.0); Monocytes # (auto) 0.5 10 ^3/uL (0-1.3); Neutrophils # (auto) 4.7 10 ^3/uL (1.6-8.6); Nucleated Red Blood Cells % 0.1 %
[2021-07-17 05:49] LABS: Eosinophils % (auto) 0.7 % (0.0-7.0); Lymphocytes # (auto) 1.6 10 ^3/uL (0.4-5.4); Lymphocytes % (auto) 23.2 % (10.0-50.0); Mean Corpuscular Hemoglobin 28.3 pg (28.0-32.0); Mean Corpuscular Hgb Conc. 34.6 g/dL (32.0-36.0); Mean Corpuscular Volume 81.9 fL (80.0-100.0); Monocytes % (auto) 7.7 % (0.0-12.0); Neutrophils % (auto) 67.8 % (37.0-80.0); Red Blood Cells 3.88 10^6/uL (4.5-5.90); Red Cell Distribution Width 13.1 % (11.8-14.3)
[2021-07-17 06:29] LABS: BUN/Creatinine Ratio 30.3; Calcium 9.2 mg/dL (8.5-10.1); Potassium 4.2 mmol/L (3.5-5.1)
[2021-07-17] MEDS: CLINDAMYCIN 600MG IV 50 ML IV SCH (06:29)
[2021-07-17 08:00] VITALS: BP 145/98
[2021-07-17] MEDS: cefTRIAXone 1GM/50ML D5W 50 ML IV SCH (09:17)
[2021-07-17] MEDS: HCTZ 25 MG TAB PO SCH (09:18)
[2021-07-17] MEDS: PANTOPRAZOLE 40 MG TAB PO SCH (09:18)
[2021-07-17] MEDS: LOSARTAN POTASSIUM 50 MG TAB PO SCH (09:18)
[2021-07-17] MEDS: ENOXAPARIN SOD 40 MG/0.4 ML SYRINGE SC SCH (09:19)
[2021-07-17] MEDS ORDERED: VANCOMYCIN PER PHARMACY 0 MG IV SCH (09:45)
[2021-07-17 12:00] VITALS: BP 129/87
[2021-07-17] MEDS: VANCOMYCIN 1GM/250ML 250 ML IV SCH ×2 (13:58→20:32)
[2021-07-17 16:00] VITALS: BP 144/95
[2021-07-17 22:00] VITALS: BP 144/100
[2021-07-17] MEDS: ATORVASTATIN 20 MG TAB PO SCH (22:45)
[2021-07-18] MEDS: ACCU-CHEK COMFORT CURVE STRIP VI SCH ×6 (00:23→20:48)
[2021-07-18] MEDS: InsuLIN REG 1unit/0.01ml Soln (100units/ml) SC SCH ×6 (00:25→20:49)
[2021-07-18] MEDS: VANCOMYCIN 1GM/250ML 250 ML IV SCH ×3 (04:14→20:47)
[2021-07-18] MEDS: HYDROcodone-ACET 5/325MG TAB PO PRN ×2 (04:50→10:00)
[2021-07-18 05:00] VITALS: BP 149/106
[2021-07-18 06:20] VITALS: BP 124/81
[2021-07-18 09:00] VITALS: BP 146/95
[2021-07-18] MEDS: cefTRIAXone 1GM/50ML D5W 50 ML IV SCH (09:50)
[2021-07-18] MEDS: ENOXAPARIN SOD 40 MG/0.4 ML SYRINGE SC SCH (09:50)
[2021-07-18] MEDS: HCTZ 25 MG TAB PO SCH (09:51)
[2021-07-18] MEDS: LOSARTAN POTASSIUM 50 MG TAB PO SCH (09:51)
[2021-07-18 11:31] LABS: Eosinophils # (auto) 0.1 10 ^3/uL (0-0.8); Lymphocytes # (auto) 2.1 10 ^3/uL (0.4-5.4); Monocytes # (auto) 0.5 10 ^3/uL (0-1.3)
[2021-07-18 11:33] LABS: Basophils # (auto) 0 10 ^3/uL (0-0.2); Basophils % (auto) 0.5 % (0.0-2.0); Eosinophils % (auto) 0.9 % (0.0-7.0); Hematocrit 32.7 % (41.0-53.0); Hemoglobin 11.2 g/dL (13.5-17.5); Lymphocytes % (auto) 31.8 % (10.0-50.0); Mean Corpuscular Hemoglobin 28.2 pg (28.0-32.0); Mean Corpuscular Hgb Conc. 34.3 g/dL (32.0-36.0); Mean Corpuscular Volume 82.2 fL (80.0-100.0); Monocytes % (auto) 7.8 % (0.0-12.0); Nucleated Red Blood Cells % 0.3 %; Red Blood Cells 3.98 10^6/uL (4.5-5.90); Red Cell Distribution Width 12.9 % (11.8-14.3); White Blood Cell 6.8 10^3/uL (4.4-10.8)
[2021-07-18 11:49] LABS: BUN/Creatinine Ratio 25.6; Calcium 9.3 mg/dL (8.5-10.1); Potassium 4.6 mmol/L (3.5-5.1)
[2021-07-18 13:00] VITALS: BP 136/99
[2021-07-18 17:00] VITALS: BP 152/97
[2021-07-18 22:00] VITALS: BP 129/92
[2021-07-18] MEDS: DAKINS QUARTER STR 0.125% (NaHypochlorite) 473 ML TOPICAL SOL TOP SCH (23:01)
[2021-07-18] MEDS: ATORVASTATIN 20 MG TAB PO SCH (23:01)
[2021-07-19] MEDS: ACCU-CHEK COMFORT CURVE STRIP VI SCH ×7 (00:23→23:55)
[2021-07-19] MEDS: InsuLIN REG 1unit/0.01ml Soln (100units/ml) SC SCH ×8 (00:26→23:55)
[2021-07-19 05:00] VITALS: BP 135/93
[2021-07-19 06:34] LABS: Basophils # (auto) 0.1 10 ^3/uL (0-0.2); Hematocrit 32.3 % (41.0-53.0); Lymphocytes # (auto) 2.4 10 ^3/uL (0.4-5.4); Monocytes # (auto) 0.5 10 ^3/uL (0-1.3); Neutrophils # (auto) 3.5 10 ^3/uL (1.6-8.6)
[2021-07-19 06:38] LABS: Basophils % (auto) 1.1 % (0.0-2.0); Eosinophils # (auto) 0 10 ^3/uL (0-0.8); Eosinophils % (auto) 0.6 % (0.0-7.0); Hemoglobin 11.2 g/dL (13.5-17.5); Lymphocytes % (auto) 37.2 % (10.0-50.0); Mean Corpuscular Hemoglobin 28.5 pg (28.0-32.0); Mean Corpuscular Hgb Conc. 34.6 g/dL (32.0-36.0); Mean Corpuscular Volume 82.3 fL (80.0-100.0); Monocytes % (auto) 7.8 % (0.0-12.0); Neutrophils % (auto) 53.3 % (37.0-80.0); Nucleated Red Blood Cells % 0.2 %; Red Blood Cells 3.92 10^6/uL (4.5-5.90); White Blood Cell 6.6 10^3/uL (4.4-10.8)
[2021-07-19 06:47] LABS: INR 1.02 (0.9-1.15); Partial Thromboplastin Time 23.4 sec (23.6-33.0)
[2021-07-19] MEDS ORDERED: LIDOCAINE W/ EPINEPHRINE 1% 20ML VIAL ONE (07:01)
[2021-07-19] MEDS ORDERED: BUPIVACAINE HCL 50 ML ONE (07:01)
[2021-07-19 07:13] LABS: Potassium 4.8 mmol/L (3.5-5.1)
[2021-07-19 07:18] LABS: BUN/Creatinine Ratio 27.5; Calcium 9.8 mg/dL (8.5-10.1)
[2021-07-19] MEDS ORDERED: LIDOCAINE 1%HCL (LOCAL ANESTH) 10 ML MDV ONE (07:27)
[2021-07-19] MEDS ORDERED: NEOMYCIN-BACITRACIN-POLYM 15GM TOP OINT TOP ONE (07:36)
[2021-07-19 08:00] VITALS: BP 140/95
[2021-07-19] MEDS: VANCOMYCIN 1GM/250ML 250 ML IV SCH ×2 (08:00→20:03)
[2021-07-19] MEDS ORDERED: MIDAZOLAM HCL 2MG/2ML 2ml VIAL (1mg/ml) ONE (08:14)
[2021-07-19] MEDS ORDERED: MEPERIDINE HCL (25 MG/ML) 1ML VIAL ONE (08:14)
[2021-07-19] MEDS ORDERED: fentaNYL CITRATE 100 MCG/2 ML VL ONE (08:14)
[2021-07-19] MEDS ORDERED: DexAMETHasone SOD PHOS 10MG/1ML VIAL INJ ONE (08:15)
[2021-07-19] MEDS ORDERED: PROPOFOL 10 MG/ML 20 ML IV ONE (08:15)
[2021-07-19] MEDS ORDERED: PHENYLEPHRINE HCL 10 MG/ML VL IV ONE (08:15)
[2021-07-19] MEDS ORDERED: MORPHINE SULFATE 4 MG/ML SYR/VIAL IV PRN (09:45)
[2021-07-19] MEDS ORDERED: MIDAZOLAM HCL 2MG/2ML 2ml VIAL (1mg/ml) IV PRN (09:45)
[2021-07-19] MEDS ORDERED: ePHEDrine SULFATE 50 MG/ML AMP IV PRN (09:45)
[2021-07-19] MEDS ORDERED: LABETALOL HCL 5 MG/ML 4ML SYRINGE IV PRN (09:45)
[2021-07-19] MEDS ORDERED: HYDROmorphone HCL 2 MG/ML VL/or syr IV PRN (09:45)
[2021-07-19] MEDS ORDERED: ONDANSETRON HCL 4 MG/2 ML VIAL IV PRN (09:45)
[2021-07-19] MEDS ORDERED: ACCU-CHEK COMFORT CURVE STRIP VI ONE (09:45)
[2021-07-19] MEDS: DAKINS QUARTER STR 0.125% (NaHypochlorite) 473 ML TOPICAL SOL TOP SCH ×2 (10:00→21:15)
[2021-07-19] MEDS: ENOXAPARIN SOD 40 MG/0.4 ML SYRINGE SC SCH (10:00)
[2021-07-19] MEDS: cefTRIAXone 1GM/50ML D5W 50 ML IV SCH (10:47)
[2021-07-19] MEDS: HCTZ 25 MG TAB PO SCH (10:48)
[2021-07-19] MEDS: LOSARTAN POTASSIUM 50 MG TAB PO SCH (10:48)
[2021-07-19 12:46] VITALS: BP 116/83
[2021-07-19 17:00] VITALS: BP_SYST 136; BP_SYST 155; BP_DIAS 91; BP_DIAS 93
[2021-07-19] MEDS: ATORVASTATIN 20 MG TAB PO SCH (21:13)
[2021-07-19] MEDS: INSULIN LANTUS (GLARGINE) 1 /0.01ml (100units/ml) SC SCH (21:14)
[2021-07-19 22:00] VITALS: BP 152/97
[2021-07-20] VITALS (7 sets, daily range): BP systolic 128–149; BP diastolic 65–102
[2021-07-20] MEDS: HYDROcodone-ACET 5/325MG TAB PO PRN ×3 (00:46→23:30)
[2021-07-20] MEDS: InsuLIN REG 1unit/0.01ml Soln (100units/ml) SC SCH ×5 (03:46→20:11)
[2021-07-20] MEDS: ACCU-CHEK COMFORT CURVE STRIP VI SCH ×5 (03:49→20:07)
[2021-07-20] MEDS: LOSARTAN POTASSIUM 50 MG TAB PO SCH (08:17)
[2021-07-20] MEDS: HCTZ 25 MG TAB PO SCH (08:18)
[2021-07-20] MEDS: ENOXAPARIN SOD 40 MG/0.4 ML SYRINGE SC SCH (08:18)
[2021-07-20 08:24] LABS: Basophils # (auto) 0.1 10 ^3/uL (0-0.2); Basophils % (auto) 1.1 % (0.0-2.0); Eosinophils # (auto) 0 10 ^3/uL (0-0.8); Hemoglobin 10.7 g/dL (13.5-17.5); Monocytes # (auto) 0.5 10 ^3/uL (0-1.3); Nucleated Red Blood Cells % 0.1 %; Red Cell Distribution Width 13.1 % (11.8-14.3)
[2021-07-20 08:26] LABS: Eosinophils % (auto) 0.3 % (0.0-7.0); Hematocrit 30.9 % (41.0-53.0); Lymphocytes # (auto) 1.8 10 ^3/uL (0.4-5.4); Mean Corpuscular Hemoglobin 28.2 pg (28.0-32.0); Mean Corpuscular Hgb Conc. 34.6 g/dL (32.0-36.0); Mean Corpuscular Volume 81.4 fL (80.0-100.0); Monocytes % (auto) 7.6 % (0.0-12.0); Neutrophils # (auto) 4.5 10 ^3/uL (1.6-8.6); Red Blood Cells 3.79 10^6/uL (4.5-5.90); White Blood Cell 6.9 10^3/uL (4.4-10.8)
[2021-07-20] MEDS: cefTRIAXone 1GM/50ML D5W 50 ML IV SCH (08:30)
[2021-07-20 09:15] LABS: BUN/Creatinine Ratio 29.1; Calcium 9.9 mg/dL (8.5-10.1)
[2021-07-20] MEDS: VANCOMYCIN 1GM/250ML 250 ML IV SCH ×2 (09:40→20:07)
[2021-07-20] MEDS: DAKINS QUARTER STR 0.125% (NaHypochlorite) 473 ML TOPICAL SOL TOP SCH ×2 (10:00→23:29)
[2021-07-20] MEDS ORDERED: DEXTROSE (50%) 50ML SYRG IV PRN (10:00)
[2021-07-20] MEDS: ATORVASTATIN 20 MG TAB PO SCH (20:11)
[2021-07-20] MEDS: INSULIN LANTUS (GLARGINE) 1 /0.01ml (100units/ml) SC SCH (20:15)
[2021-07-21] MEDS: ACCU-CHEK COMFORT CURVE STRIP VI SCH ×6 (00:36→20:00)
[2021-07-21] MEDS: InsuLIN REG 1unit/0.01ml Soln (100units/ml) SC SCH ×6 (00:39→21:58)
[2021-07-21 05:00] VITALS: BP 158/108
[2021-07-21 09:00] VITALS: BP 146/75
[2021-07-21] MEDS: cefTRIAXone 1GM/50ML D5W 50 ML IV SCH (10:09)
[2021-07-21] MEDS: LOSARTAN POTASSIUM 50 MG TAB PO SCH (10:09)
[2021-07-21] MEDS: VANCOMYCIN 1GM/250ML 250 ML IV SCH (10:09)
[2021-07-21] MEDS: ENOXAPARIN SOD 40 MG/0.4 ML SYRINGE SC SCH (10:09)
[2021-07-21] MEDS: HCTZ 25 MG TAB PO SCH (10:10)
[2021-07-21] MEDS: DAKINS QUARTER STR 0.125% (NaHypochlorite) 473 ML TOPICAL SOL TOP SCH ×2 (10:11→22:12)
[2021-07-21] MEDS: HYDROcodone-ACET 5/325MG TAB PO PRN ×2 (13:30→22:34)
[2021-07-21] MEDS: AMPICILLIN & SULBACTAM SODIUM 3 GM in SODIUM CHL 0.9% 100 ML IV SCH ×2 (13:30→17:47)
[2021-07-21 14:11] LABS: Basophils # (auto) 0.1 10 ^3/uL (0-0.2); Eosinophils # (auto) 0 10 ^3/uL (0-0.8); Hemoglobin 11.1 g/dL (13.5-17.5); Monocytes # (auto) 0.6 10 ^3/uL (0-1.3); Neutrophils # (auto) 3.6 10 ^3/uL (1.6-8.6)
[2021-07-21 14:13] LABS: Basophils % (auto) 1.2 % (0.0-2.0); Eosinophils % (auto) 0.3 % (0.0-7.0); Hematocrit 32.8 % (41.0-53.0); Lymphocytes # (auto) 1.9 10 ^3/uL (0.4-5.4); Lymphocytes % (auto) 30.2 % (10.0-50.0); Mean Corpuscular Hemoglobin 27.7 pg (28.0-32.0); Mean Corpuscular Hgb Conc. 33.7 g/dL (32.0-36.0); Mean Corpuscular Volume 82.2 fL (80.0-100.0); Monocytes % (auto) 10.1 % (0.0-12.0); Neutrophils % (auto) 58.2 % (37.0-80.0); Nucleated Red Blood Cells % 0.2 %; Red Cell Distribution Width 12.9 % (11.8-14.3); White Blood Cell 6.2 10^3/uL (4.4-10.8)
[2021-07-21 14:22] LABS: BUN/Creatinine Ratio 26.3; Calcium 9.1 mg/dL (8.5-10.1); Potassium 4.4 mmol/L (3.5-5.1)
[2021-07-21 17:00] VITALS: BP 150/73
[2021-07-21 21:46] VITALS: BP 139/95
[2021-07-21] MEDS: ATORVASTATIN 20 MG TAB PO SCH (21:59)
[2021-07-21] MEDS: INSULIN LANTUS (GLARGINE) 1 /0.01ml (100units/ml) SC SCH (22:12)
[2021-07-22] MEDS: ACCU-CHEK COMFORT CURVE STRIP VI SCH ×6 (00:01→20:15)
[2021-07-22] MEDS: AMPICILLIN & SULBACTAM SODIUM 3 GM in SODIUM CHL 0.9% 100 ML IV SCH ×4 (00:25→17:41)
[2021-07-22] MEDS: InsuLIN REG 1unit/0.01ml Soln (100units/ml) SC SCH ×6 (00:30→21:40)
[2021-07-22 04:46] VITALS: BP 138/100
[2021-07-22] MEDS: HYDROcodone-ACET 5/325MG TAB PO PRN ×3 (04:49→21:41)
[2021-07-22 06:19] LABS: Basophils # (auto) 0 10 ^3/uL (0-0.2); Basophils % (auto) 0.4 % (0.0-2.0); Eosinophils # (auto) 0.1 10 ^3/uL (0-0.8); Eosinophils % (auto) 1.4 % (0.0-7.0); Hematocrit 28.3 % (41.0-53.0); Lymphocytes # (auto) 2.5 10 ^3/uL (0.4-5.4); Lymphocytes % (auto) 45.4 % (10.0-50.0); Mean Corpuscular Hemoglobin 28.6 pg (28.0-32.0); Mean Corpuscular Hgb Conc. 35.2 g/dL (32.0-36.0); Mean Corpuscular Volume 81.3 fL (80.0-100.0); Monocytes # (auto) 0.5 10 ^3/uL (0-1.3); Monocytes % (auto) 9.5 % (0.0-12.0); Neutrophils # (auto) 2.4 10 ^3/uL (1.6-8.6); Neutrophils % (auto) 43.3 % (37.0-80.0); Nucleated Red Blood Cells % 0.4 %; Red Blood Cells 3.48 10^6/uL (4.5-5.90); Red Cell Distribution Width 13.1 % (11.8-14.3); White Blood Cell 5.5 10^3/uL (4.4-10.8)
[2021-07-22 06:36] LABS: Calcium 9.1 mg/dL (8.5-10.1); Potassium 4.1 mmol/L (3.5-5.1)
[2021-07-22 06:40] LABS: BUN/Creatinine Ratio 32.1
[2021-07-22 09:00] VITALS: BP 140/99
[2021-07-22] MEDS: LOSARTAN POTASSIUM 50 MG TAB PO SCH (10:53)
[2021-07-22] MEDS: HCTZ 25 MG TAB PO SCH (10:53)
[2021-07-22] MEDS: ENOXAPARIN SOD 40 MG/0.4 ML SYRINGE SC SCH (10:54)
[2021-07-22] MEDS: DAKINS QUARTER STR 0.125% (NaHypochlorite) 473 ML TOPICAL SOL TOP SCH ×2 (10:54→21:35)
[2021-07-22 13:00] VITALS: BP 129/99
[2021-07-22 17:00] VITALS: BP 104/73
[2021-07-22] MEDS: ATORVASTATIN 20 MG TAB PO SCH (21:34)
[2021-07-22] MEDS: INSULIN LANTUS (GLARGINE) 1 /0.01ml (100units/ml) SC SCH (21:41)
[2021-07-22 22:00] VITALS: BP 154/102
[2021-07-23] MEDS: ACCU-CHEK COMFORT CURVE STRIP VI SCH ×6 (00:18→20:00)
[2021-07-23] MEDS: InsuLIN REG 1unit/0.01ml Soln (100units/ml) SC SCH ×6 (00:19→22:10)
[2021-07-23] MEDS: AMPICILLIN & SULBACTAM SODIUM 3 GM in SODIUM CHL 0.9% 100 ML IV SCH ×5 (00:20→23:53)
[2021-07-23 05:00] VITALS: BP 145/108
[2021-07-23 06:49] LABS: Basophils # (auto) 0 10 ^3/uL (0-0.2); Eosinophils # (auto) 0.1 10 ^3/uL (0-0.8); Monocytes # (auto) 0.4 10 ^3/uL (0-1.3); Neutrophils # (auto) 1.9 10 ^3/uL (1.6-8.6); White Blood Cell 4.7 10^3/uL (4.4-10.8)
[2021-07-23 06:50] LABS: Basophils % (auto) 0.6 % (0.0-2.0); Eosinophils % (auto) 1.8 % (0.0-7.0); Hematocrit 29.9 % (41.0-53.0); Hemoglobin 10.2 g/dL (13.5-17.5); Lymphocytes # (auto) 2.3 10 ^3/uL (0.4-5.4); Lymphocytes % (auto) 49.4 % (10.0-50.0); Mean Corpuscular Hemoglobin 28.4 pg (28.0-32.0); Mean Corpuscular Hgb Conc. 34.3 g/dL (32.0-36.0); Mean Corpuscular Volume 82.9 fL (80.0-100.0); Monocytes % (auto) 8.4 % (0.0-12.0); Neutrophils % (auto) 39.8 % (37.0-80.0); Nucleated Red Blood Cells % 0.3 %; Red Cell Distribution Width 12.9 % (11.8-14.3)
[2021-07-23 07:04] LABS: BUN/Creatinine Ratio 29.3; Calcium 9.2 mg/dL (8.5-10.1); Potassium 4.4 mmol/L (3.5-5.1)
[2021-07-23 08:30] VITALS: BP 132/95
[2021-07-23] MEDS: LOSARTAN POTASSIUM 50 MG TAB PO SCH (09:59)
[2021-07-23] MEDS: DAKINS QUARTER STR 0.125% (NaHypochlorite) 473 ML TOPICAL SOL TOP SCH ×2 (10:00→22:10)
[2021-07-23] MEDS: HCTZ 25 MG TAB PO SCH (10:00)
[2021-07-23] MEDS: ENOXAPARIN SOD 40 MG/0.4 ML SYRINGE SC SCH (10:00)
[2021-07-23 12:30] VITALS: BP 129/91
[2021-07-23 17:00] VITALS: BP 106/66
[2021-07-23 22:00] VITALS: BP 154/102
[2021-07-23] MEDS: CIPROFLOXACIN HCL 500 MG TAB PO SCH (22:09)
[2021-07-23] MEDS: ATORVASTATIN 20 MG TAB PO SCH (22:09)
[2021-07-23] MEDS: INSULIN LANTUS (GLARGINE) 1 /0.01ml (100units/ml) SC SCH (22:10)
[2021-07-24] MEDS: ACCU-CHEK COMFORT CURVE STRIP VI SCH ×6 (04:00→20:03)
[2021-07-24] MEDS: InsuLIN REG 1unit/0.01ml Soln (100units/ml) SC SCH ×6 (04:00→20:18)
[2021-07-24 04:46] VITALS: BP 146/98
[2021-07-24] MEDS: AMPICILLIN & SULBACTAM SODIUM 3 GM in SODIUM CHL 0.9% 100 ML IV SCH ×3 (05:46→18:20)
[2021-07-24 09:00] VITALS: BP 127/73
[2021-07-24] MEDS: ENOXAPARIN SOD 40 MG/0.4 ML SYRINGE SC SCH (09:08)
[2021-07-24] MEDS: CIPROFLOXACIN HCL 500 MG TAB PO SCH (09:08)
[2021-07-24] MEDS: LOSARTAN POTASSIUM 50 MG TAB PO SCH (09:09)
[2021-07-24] MEDS: HCTZ 25 MG TAB PO SCH (09:09)
[2021-07-24] MEDS: DAKINS QUARTER STR 0.125% (NaHypochlorite) 473 ML TOPICAL SOL TOP SCH ×2 (09:10→22:17)
[2021-07-24] MEDS ORDERED: FLUCONAZOLE 100 MG TAB PO ONE (10:30)
[2021-07-24 13:23] LABS: INR 1.05 (0.9-1.15); Partial Thromboplastin Time 32.8 sec (23.6-33.0)
[2021-07-24] MEDS ORDERED: LIDOCAINE 1% (LOCAL ANESTH.) PF 5ml SDV ID ONE (15:45)
[2021-07-24 16:34] VITALS: BP 155/95
[2021-07-24 20:00] VITALS: BP 144/103
[2021-07-24] MEDS: ATORVASTATIN 20 MG TAB PO SCH (22:15)
[2021-07-24] MEDS: SODIUM CHLOR 0.9% PF (SALINE LOCK) 10ML VIAL/SYR IV SCH (22:15)
[2021-07-24] MEDS: INSULIN LANTUS (GLARGINE) 1 /0.01ml (100units/ml) SC SCH (22:16)
[2021-07-24 22:17] VITALS: BP 144/103
[2021-07-25] MEDS: AMPICILLIN & SULBACTAM SODIUM 3 GM in SODIUM CHL 0.9% 100 ML IV SCH ×5 (00:28→23:24)
[2021-07-25] MEDS: ACCU-CHEK COMFORT CURVE STRIP VI SCH ×7 (00:29→22:23)
[2021-07-25] MEDS: InsuLIN REG 1unit/0.01ml Soln (100units/ml) SC SCH ×6 (04:00→22:25)
[2021-07-25 05:12] VITALS: BP 153/98
[2021-07-25 05:44] LABS: BUN/Creatinine Ratio 32.4; Calcium 9.2 mg/dL (8.5-10.1); Potassium 3.7 mmol/L (3.5-5.1)
[2021-07-25 07:57] LABS: Basophils # (auto) 0 10 ^3/uL (0-0.2); Basophils % (auto) 1.1 % (0.0-2.0); Eosinophils # (auto) 0.1 10 ^3/uL (0-0.8); Hematocrit 30.6 % (41.0-53.0); Hemoglobin 10.3 g/dL (13.5-17.5); Lymphocytes % (auto) 47.5 % (10.0-50.0); Mean Corpuscular Hemoglobin 27.3 pg (28.0-32.0); Mean Corpuscular Hgb Conc. 33.6 g/dL (32.0-36.0); Mean Corpuscular Volume 81.3 fL (80.0-100.0); Monocytes # (auto) 0.3 10 ^3/uL (0-1.3); Monocytes % (auto) 6.5 % (0.0-12.0); Neutrophils # (auto) 1.8 10 ^3/uL (1.6-8.6); Neutrophils % (auto) 42.9 % (37.0-80.0); Nucleated Red Blood Cells % 0.1 %; Red Blood Cells 3.76 10^6/uL (4.5-5.90); Red Cell Distribution Width 12.9 % (11.8-14.3); White Blood Cell 4.1 10^3/uL (4.4-10.8)
[2021-07-25 09:00] VITALS: BP 161/108
[2021-07-25] MEDS: SODIUM CHLOR 0.9% PF (SALINE LOCK) 10ML VIAL/SYR IV SCH ×2 (09:39→22:23)
[2021-07-25] MEDS: DAKINS QUARTER STR 0.125% (NaHypochlorite) 473 ML TOPICAL SOL TOP SCH ×2 (09:40→22:23)
[2021-07-25] MEDS: HCTZ 25 MG TAB PO SCH (09:40)
[2021-07-25] MEDS: ENOXAPARIN SOD 40 MG/0.4 ML SYRINGE SC SCH (09:40)
[2021-07-25] MEDS: FLUCONAZOLE 100 MG TAB PO SCH (09:41)
[2021-07-25] MEDS: LOSARTAN POTASSIUM 50 MG TAB PO SCH (09:41)
[2021-07-25 13:00] VITALS: BP 137/93
[2021-07-25 16:36] VITALS: BP 145/91
[2021-07-25] MEDS: ATORVASTATIN 20 MG TAB PO SCH (22:23)
[2021-07-25] MEDS: INSULIN LANTUS (GLARGINE) 1 /0.01ml (100units/ml) SC SCH (22:25)
[2021-07-25] MEDS: HYDROcodone-ACET 5/325MG TAB PO PRN (22:35)
[2021-07-25] MEDS ORDERED: LABETALOL HCL 5 MG/ML 4ML SYRINGE IV ONE (23:00)
[2021-07-26 00:12] VITALS: BP 178/114
[2021-07-26] MEDS: ACCU-CHEK COMFORT CURVE STRIP VI SCH ×2 (01:04→04:19)
[2021-07-26] MEDS: InsuLIN REG 1unit/0.01ml Soln (100units/ml) SC SCH ×3 (01:05→08:40)
[2021-07-26] MEDS: HYDROcodone-ACET 5/325MG TAB PO PRN (04:19)
[2021-07-26 05:45] VITALS: BP 158/109
[2021-07-26] MEDS: AMPICILLIN & SULBACTAM SODIUM 3 GM in SODIUM CHL 0.9% 100 ML IV SCH (05:48)
[2021-07-26 09:00] VITALS: BP 139/93
[2021-07-26] MEDS: LOSARTAN POTASSIUM 50 MG TAB PO SCH (09:03)
[2021-07-26] MEDS: DAKINS QUARTER STR 0.125% (NaHypochlorite) 473 ML TOPICAL SOL TOP SCH (09:04)
[2021-07-26] MEDS: HCTZ 25 MG TAB PO SCH (09:04)
[2021-07-26] MEDS: FLUCONAZOLE 100 MG TAB PO SCH (09:04)
[2021-07-26] MEDS: ENOXAPARIN SOD 40 MG/0.4 ML SYRINGE SC SCH (09:04)
[2021-07-26] MEDS: SODIUM CHLOR 0.9% PF (SALINE LOCK) 10ML VIAL/SYR IV SCH (09:05)
== END 2021-07-26 12:02 | DRG 305 ==
LOC: EDBD 19:25 → ER 19:29 → OVERFLOW 07-15 06:08 → EAST 07-15 11:51
PROVIDERS: ADMIT Nurse Practitioner; ATTEND Internal Medicine Pulmonary Disease
PROC: 0Y6M0ZF Detachment at Right Foot, Partial 5th Ray, Open Approach (ICD-10-PCS; 2021-07-19)
PROC: 0Y6M0ZD Detachment at Right Foot, Partial 4th Ray, Open Approach (ICD-10-PCS; principal; 2021-07-19 08:28)
PROC: 05HY33Z Insertion of Infusion Device into Upper Vein, Percutaneous Approach (ICD-10-PCS; 2021-07-24)
PROC: B54MZZA Ultrasonography of Right Upper Extremity Veins, Guidance (ICD-10-PCS; 2021-07-24)
DX: E11.69 Type 2 diabetes mellitus with other specified complication (principal); A48.0 Gas gangrene; E44.0 Moderate protein-calorie malnutrition; M86.171 Other acute osteomyelitis, right ankle and foot; E87.1 Hypo-osmolality and hyponatremia; D63.8 Anemia in other chronic diseases classified elsewhere; F03.90 Unspecified dementia, unspecified severity, without behavioral disturbance, psychotic disturbance, mood disturbance, and anxiety; L03.115 Cellulitis of right lower limb; Z20.822 Contact with and (suspected) exposure to COVID-19; E11.65 Type 2 diabetes mellitus with hyperglycemia; I10 Essential (primary) hypertension; Z68.27 Body mass index [BMI] 27.0-27.9, adult; Z83.3 Family history of diabetes mellitus; Z79.4 Long term (current) use of insulin
CPT/HCPCS: 36415; 36569; 73630; 73718; 80048; 80053; 80202; 82962; 83036; 83605; 85025; 85610; 85652; 85730; 86141; 86850; 86900; 86901; 87040; 87070; 87075; 87077; 87186; 87205; 96365; 96366; 96367; 96368; 96372; G0378; J0696; J1100; J1815; J2001; J2250; J2543; J2704; J3490

== ENCOUNTER 2023-03-08 17:10 | Inpatient (IN) | payer OTHER, MEDICAID ==
[~2023-03-08] VITALS: Ht 172.7 cm; Wt 83.6 kg
[~2023-03-08 17:10] MED LIST changes: -LOSA-69 PO; +LOSA50TA46 PO
[2023-03-08 18:44] LABS: Basophils # (auto) 0 10 ^3/uL (0-0.2); Basophils % (auto) 0.4 % (0.0-2.0); Eosinophils # (auto) 0 10 ^3/uL (0-0.8); Eosinophils % (auto) 0.5 % (0.0-7.0); Hematocrit 39.9 % (41.0-53.0); Hemoglobin 13.4 g/dL (13.5-17.5); Lymphocytes # (auto) 1.2 10 ^3/uL (0.4-5.4); Lymphocytes % (auto) 29.5 % (10.0-50.0); Mean Corpuscular Hemoglobin 28.9 pg (28.0-32.0); Mean Corpuscular Hgb Conc. 33.6 g/dL (32.0-36.0); Mean Corpuscular Volume 85.9 fL (80.0-100.0); Monocytes # (auto) 0.2 10 ^3/uL (0-1.3); Monocytes % (auto) 5.1 % (0.0-12.0); Neutrophils # (auto) 2.7 10 ^3/uL (1.6-8.6); Neutrophils % (auto) 64.5 % (37.0-80.0); Nucleated Red Blood Cells % 0.2 %; Red Blood Cells 4.64 10^6/uL (4.5-5.90); Red Cell Distribution Width 12.3 % (11.8-14.3); White Blood Cell 4.2 10^3/uL (4.4-10.8)
[2023-03-08 18:50] LABS: Alanine Aminotransferase 17 U/L (7-40); Albumin 3.7 g/dL (3.2-4.8); Alkaline Phosphatase 160 U/L (46-116); Anion Gap 9 (5-15); BUN/Creatinine Ratio 12.6 (10.0-20.0); Blood Urea Nitrogen 17 mg/dL (9-23); Calcium 8.4 mg/dL (8.7-10.4); Carbon Dioxide 25 mmol/L (20-30); Chloride 91 mmol/L (98-107); Potassium 4.4 mmol/L (3.5-5.1); Sodium 125 mmol/L (136-145)
[2023-03-08 18:51] LABS: Bilirubin, Total 0.3 mg/dL (0.2-1.0); Total Protein 6.4 g/dL (5.7-8.2)
[2023-03-08 18:53] LABS: Aspartate Aminotransferase 21 U/L (13-40)
[2023-03-08 19:24] LABS: Glucose 696 mg/dL (74-106)
[2023-03-08 19:26] LABS: Base Excess 2.3 mmol/L (-2.0-2.0)
[2023-03-08] MEDS ORDERED: INSULIN DRIP 100 UNIT/100ML 100 ML IV SCH (19:45)
[2023-03-08] MEDS ORDERED: DEXTROSE (50%) 50ML SYRG IV PRN (19:45)
[2023-03-08] MEDS ORDERED: INSULIN LANTUS (GLARGINE) 1 /0.01ml (100units/ml) SC ONE (19:45)
[2023-03-08 20:24] LABS: Magnesium 1.9 mg/dL (1.6-2.6)
[2023-03-08 21:32] LABS: Phosphorus 2.2 mg/dL (2.4-5.1)
[2023-03-08] MEDS: SODIUM CHLORIDE 0.9% 1,000 ML IV ONE ×2 (23:45→23:51)
[2023-03-08] MEDS ORDERED: SODIUM CHLORIDE 0.9% 1,000 ML IV SCH (23:45)
[2023-03-08] MEDS: ACCU-CHEK COMFORT CURVE STRIP VI SCH ×2 (23:58→23:59)
[2023-03-09] VITALS: PULSE 96; RESP 12; O2SAT 98
[2023-03-09] MEDS: SODIUM CHLORIDE 0.9% 1,000 ML IV ONE (00:06)
[2023-03-09] MEDS ORDERED: INSULIN LANTUS (GLARGINE) 1 /0.01ml (100units/ml) SC ONE (00:39)
[2023-03-09] MEDS ORDERED: INSULIN DRIP 100 UNIT/100ML 100 ML IV ONE (00:46)
[2023-03-09] MEDS ORDERED: SOD CHL 0.9%/ KCL 20MEQ 1,000 ML IV ONE ×2 (01:07→08:02)
[2023-03-09] MEDS: SOD CHL 0.9%/ KCL 20MEQ 1,000 ML IV SCH ×3 (01:08→09:17)
[2023-03-09] MEDS ORDERED: cloNIDine HCL 0.1 MG TAB PO ONE (01:30)
[2023-03-09] MEDS: ACCU-CHEK COMFORT CURVE STRIP VI SCH ×7 (01:31→09:19)
[2023-03-09] MEDS ORDERED: cloNIDine HCL 0.1 MG TAB ONE (01:37)
[2023-03-09] MEDS ORDERED: LABETALOL HCL 5 MG/ML 4ML SYRINGE IV ONE (01:45)
[2023-03-09] MEDS ORDERED: LACTATED RINGER'S 1,000 ML IV ONE ×2 (01:45→02:00)
[2023-03-09] MEDS ORDERED: ACETAMINOPHEN 325 MG TAB PO PRN (02:00)
[2023-03-09] MEDS ORDERED: ONDANSETRON HCL 4 MG/2 ML VIAL IV PRN (02:00)
[2023-03-09] MEDS ORDERED: NEUTRA-PHOS TABLET PO ONE (02:00)
[2023-03-09] MEDS ORDERED: HYDROmorphone HCL 2 MG/ML VL/or syr IV PRN (02:00)
[2023-03-09] MEDS ORDERED: HYDROcodone-ACET 5/325MG TAB PO PRN (02:00)
[2023-03-09 02:49] LABS: Chloride 100 mmol/L (98-107); Potassium 3.8 mmol/L (3.5-5.1)
[2023-03-09 02:50] LABS: Anion Gap 9 (5-15); Carbon Dioxide 21 mmol/L (20-30)
[2023-03-09 02:51] LABS: Calcium 8.7 mg/dL (8.7-10.4)
[2023-03-09 02:56] LABS: BUN/Creatinine Ratio 12.4 (10.0-20.0); Blood Urea Nitrogen 15 mg/dL (9-23)
[2023-03-09 03:04] LABS: Sodium 130 mmol/L (136-145)
[2023-03-09 03:06] LABS: Glucose 483 mg/dL (74-106)
[2023-03-09 03:30] VITALS: PULSE 88; RESP 17; O2SAT 98
[2023-03-09] MEDS: hydrALAZINE HCL 25 MG TAB PO SCH ×4 (04:05→23:10)
[2023-03-09 05:30] LABS: Urine Bacteria NONE SEEN /hpf (None Seen); Urine Blood Negative /uL (Negative); Urine Clarity Clear (Clear); Urine Protein, UAD 2+ (Negative); Urine Specific Gravity 1.025 (1.001-1.035); Urine Urobilinogen Normal (Negative); Urine WBC 4 /hpf (0 - 3)
[2023-03-09 05:31] LABS: Urine Color Straw (Yellow)
[2023-03-09] MEDS: SODIUM CHLOR 0.9% PF (SALINE LOCK) 10ML VIAL/SYR IV SCH ×3 (06:11→23:10)
[2023-03-09 06:16] LABS: Anion Gap 6 (5-15); Carbon Dioxide 25 mmol/L (20-30); Chloride 105 mmol/L (98-107); Potassium 3.7 mmol/L (3.5-5.1)
[2023-03-09 06:17] LABS: Calcium 8.3 mg/dL (8.7-10.4)
[2023-03-09] MEDS ORDERED: hydrALAZINE HCL 25 MG TAB ONE ×3 (06:20→23:09)
[2023-03-09 06:22] LABS: BUN/Creatinine Ratio 15.6 (10.0-20.0); Blood Urea Nitrogen 17 mg/dL (9-23)
[2023-03-09 06:31] LABS: Glucose 145 mg/dL (74-106); Sodium 136 mmol/L (136-145)
[2023-03-09 07:55] VITALS: PULSE 82; RESP 16; O2SAT 98
[2023-03-09] MEDS ORDERED: INSULIN LANTUS (GLARGINE) 1 /0.01ml (100units/ml) SC SCH (10:00)
[2023-03-09] MEDS ORDERED: HCTZ 25 MG PO SCH (10:00)
[2023-03-09] MEDS ORDERED: PATIENTS OWN MEDICATION (Atorvastatin Calcium 1 TAB) PO SCH (10:00)
[2023-03-09] MEDS ORDERED: ATORVASTATIN 20 MG TAB ONE (10:14)
[2023-03-09] MEDS ORDERED: ENOXAPARIN SOD 40 MG/0.4 ML SYRINGE SC ONE (10:14)
[2023-03-09] MEDS ORDERED: hydroCHLOROthiazide 25 MG TAB ONE (10:14)
[2023-03-09 10:15] LABS: Chloride 106 mmol/L (98-107); Potassium 3.9 mmol/L (3.5-5.1); Sodium 137 mmol/L (136-145)
[2023-03-09] MEDS: ATORVASTATIN 20 MG TAB PO SCH (10:15)
[2023-03-09] MEDS: hydroCHLOROthiazide 25 MG TAB PO SCH (10:15)
[2023-03-09 10:16] LABS: Anion Gap 6 (5-15); Carbon Dioxide 25 mmol/L (20-30)
[2023-03-09] MEDS: ENOXAPARIN SOD 40 MG/0.4 ML SYRINGE SC SCH (10:16)
[2023-03-09 10:17] LABS: Calcium 8.7 mg/dL (8.5-10.1)
[2023-03-09 10:22] LABS: BUN/Creatinine Ratio 18.3 (10.0-20.0); Blood Urea Nitrogen 17 mg/dL (9-23); Glucose 163 mg/dL (74-106)
[2023-03-09] MEDS ORDERED: hydrALAZINE HCL 20 MG/ML VL ONE (12:43)
[2023-03-09] MEDS: hydrALAZINE HCL 20 MG/ML VL IV PRN (12:43)
[2023-03-09 14:49] LABS: Chloride 105 mmol/L (98-107); Potassium 4.2 mmol/L (3.5-5.1); Sodium 133 mmol/L (136-145)
[2023-03-09 14:50] LABS: Anion Gap 5 (5-15); Carbon Dioxide 23 mmol/L (20-30)
[2023-03-09 14:51] LABS: Calcium 8.2 mg/dL (8.7-10.4)
[2023-03-09 14:55] LABS: BUN/Creatinine Ratio 13.8 (10.0-20.0); Blood Urea Nitrogen 15 mg/dL (9-23)
[2023-03-09 14:57] LABS: Glucose 292 mg/dL (74-106)
[2023-03-09 20:10] VITALS: PULSE 103; RESP 20; O2SAT 94
[2023-03-09] MEDS ORDERED: LOSARTAN POTASSIUM 50 MG TAB ONE (23:09)
[2023-03-09] MEDS: LOSARTAN POTASSIUM 50 MG TAB PO SCH (23:10)
[2023-03-10] MEDS: SODIUM CHLOR 0.9% PF (SALINE LOCK) 10ML VIAL/SYR IV SCH ×3 (06:29→23:48)
[2023-03-10] MEDS: hydrALAZINE HCL 25 MG TAB PO SCH ×3 (06:31→23:48)
[2023-03-10 10:39] LABS: Basophils # (auto) 0 10 ^3/uL (0-0.2); Basophils % (auto) 0.5 % (0.0-2.0); Eosinophils # (auto) 0.1 10 ^3/uL (0-0.8); Eosinophils % (auto) 1.2 % (0.0-7.0); Hematocrit 40.7 % (41.0-53.0); Hemoglobin 13.5 g/dL (13.5-17.5); Lymphocytes # (auto) 2.1 10 ^3/uL (0.4-5.4); Lymphocytes % (auto) 46.9 % (10.0-50.0); Mean Corpuscular Hemoglobin 28.7 pg (28.0-32.0); Mean Corpuscular Hgb Conc. 33.2 g/dL (32.0-36.0); Mean Corpuscular Volume 86.3 fL (80.0-100.0); Monocytes # (auto) 0.2 10 ^3/uL (0-1.3); Monocytes % (auto) 5.3 % (0.0-12.0); Neutrophils # (auto) 2.1 10 ^3/uL (1.6-8.6); Neutrophils % (auto) 46.1 % (37.0-80.0); Nucleated Red Blood Cells % 0.1 %; Red Blood Cells 4.72 10^6/uL (4.5-5.90); Red Cell Distribution Width 12.1 % (11.8-14.3); White Blood Cell 4.6 10^3/uL (4.4-10.8)
[2023-03-10] MEDS: ATORVASTATIN 20 MG TAB PO SCH (10:40)
[2023-03-10] MEDS: ENOXAPARIN SOD 40 MG/0.4 ML SYRINGE SC SCH (10:40)
[2023-03-10] MEDS: hydroCHLOROthiazide 25 MG TAB PO SCH (10:41)
[2023-03-10 10:59] LABS: Phosphorus 3.1 mg/dL (2.4-5.1)
[2023-03-10 11:07] LABS: Alanine Aminotransferase 17 U/L (7-40); Albumin 3.6 g/dL (3.2-4.8); Alkaline Phosphatase 133 U/L (46-116); Anion Gap 13 (5-15); Aspartate Aminotransferase 15 U/L (13-40); BUN/Creatinine Ratio 13.5 (10.0-20.0); Bilirubin, Total 0.6 mg/dL (0.2-1.0); Blood Urea Nitrogen 14 mg/dL (9-23); Calcium 9.7 mg/dL (8.5-10.1); Carbon Dioxide 19 mmol/L (20-30); Chloride 101 mmol/L (98-107); Glucose 380 mg/dL (74-106); Potassium 4.3 mmol/L (3.5-5.1); Sodium 133 mmol/L (136-145); Total Protein 6.5 g/dL (5.7-8.2)
[2023-03-10 11:09] VITALS: PULSE 98; RESP 21; O2SAT 96
[2023-03-10] MEDS ORDERED: ACCU-CHEK COMFORT CURVE STRIP VI SCH (12:00)
[2023-03-10] MEDS ORDERED: DEXTROSE (50%) 50ML SYRG IV PRN (13:00)
[2023-03-10] MEDS: ACCU-CHEK COMFORT CURVE STRIP VI SCH ×3 (13:32→23:55)
[2023-03-10] MEDS: InsuLIN REG 1unit/0.01ml Soln (100units/ml) SC SCH ×3 (13:36→23:57)
[2023-03-10 21:14] VITALS: PULSE 78; RESP 18; O2SAT 97
[2023-03-10 22:00] VITALS: BP 141/90; PULSE 105; RESP 18; TEMP 98; O2SAT 98
[2023-03-10] MEDS: LOSARTAN POTASSIUM 50 MG TAB PO SCH (23:47)
[2023-03-11] VITALS (7 sets, daily range): BP systolic 111–172; BP diastolic 65–112; PULSE 93–106; RESP 17–20; TEMP 98–98.8; O2SAT 95–99
[2023-03-11] MEDS: InsuLIN REG 1unit/0.01ml Soln (100units/ml) SC SCH ×4 (05:31→23:26)
[2023-03-11] MEDS: hydrALAZINE HCL 25 MG TAB PO SCH ×3 (05:36→22:14)
[2023-03-11] MEDS: ACCU-CHEK COMFORT CURVE STRIP VI SCH ×4 (05:41→23:20)
[2023-03-11] MEDS: SODIUM CHLOR 0.9% PF (SALINE LOCK) 10ML VIAL/SYR IV SCH ×3 (06:02→22:23)
[2023-03-11] MEDS: ATORVASTATIN 20 MG TAB PO SCH (09:29)
[2023-03-11] MEDS: ENOXAPARIN SOD 40 MG/0.4 ML SYRINGE SC SCH (09:29)
[2023-03-11] MEDS: hydroCHLOROthiazide 25 MG TAB PO SCH (09:29)
[2023-03-11] MEDS ORDERED: INSULIN LANTUS (GLARGINE) 1 /0.01ml (100units/ml) SC ONE (11:30)
[2023-03-11] MEDS: hydrALAZINE HCL 20 MG/ML VL IV PRN (17:27)
[2023-03-11] MEDS ORDERED: INSULIN LANTUS (GLARGINE) 1 /0.01ml (100units/ml) SC SCH (22:00)
[2023-03-11] MEDS: LOSARTAN POTASSIUM 50 MG TAB PO SCH (22:14)
[2023-03-12] VITALS (7 sets, daily range): BP systolic 126–186; BP diastolic 51–111; PULSE 92–105; RESP 16–19; TEMP 97.3–97.8; O2SAT 98–100
[2023-03-12] MEDS: hydrALAZINE HCL 20 MG/ML VL IV PRN (04:19)
[2023-03-12] MEDS: hydrALAZINE HCL 25 MG TAB PO SCH ×3 (05:41→21:15)
[2023-03-12] MEDS: ACCU-CHEK COMFORT CURVE STRIP VI SCH ×4 (05:41→23:04)
[2023-03-12] MEDS: InsuLIN REG 1unit/0.01ml Soln (100units/ml) SC SCH ×4 (05:45→23:07)
[2023-03-12] MEDS: SODIUM CHLOR 0.9% PF (SALINE LOCK) 10ML VIAL/SYR IV SCH ×3 (05:45→21:19)
[2023-03-12] MEDS: hydroCHLOROthiazide 25 MG TAB PO SCH (08:50)
[2023-03-12] MEDS: ATORVASTATIN 20 MG TAB PO SCH (08:50)
[2023-03-12] MEDS: ENOXAPARIN SOD 40 MG/0.4 ML SYRINGE SC SCH (08:50)
[2023-03-12] MEDS: INSULIN LANTUS (GLARGINE) 1 /0.01ml (100units/ml) SC SCH ×2 (11:51→21:17)
[2023-03-12] MEDS: LOSARTAN POTASSIUM 50 MG TAB PO SCH (21:14)
[2023-03-13] MEDS: ACCU-CHEK COMFORT CURVE STRIP VI SCH ×2 (04:30→12:08)
[2023-03-13 05:00] VITALS: BP 116/77; PULSE 100; RESP 19; TEMP 98; O2SAT 99
[2023-03-13] MEDS: SODIUM CHLOR 0.9% PF (SALINE LOCK) 10ML VIAL/SYR IV SCH ×2 (05:11→14:00)
[2023-03-13] MEDS: hydrALAZINE HCL 25 MG TAB PO SCH ×2 (05:11→14:00)
[2023-03-13] MEDS: InsuLIN REG 1unit/0.01ml Soln (100units/ml) SC SCH ×2 (05:16→12:08)
[2023-03-13 08:00] VITALS: PULSE 115
[2023-03-13 09:00] VITALS: BP 101/57; PULSE 107; RESP 18; TEMP 97.9; O2SAT 96
[2023-03-13] MEDS: ENOXAPARIN SOD 40 MG/0.4 ML SYRINGE SC SCH (09:00)
[2023-03-13] MEDS: ATORVASTATIN 20 MG TAB PO SCH (09:00)
[2023-03-13] MEDS: hydroCHLOROthiazide 25 MG TAB PO SCH (09:01)
[2023-03-13] MEDS: INSULIN LANTUS (GLARGINE) 1 /0.01ml (100units/ml) SC SCH (09:36)
[2023-03-13 13:00] VITALS: BP 122/82; PULSE 102; RESP 18; TEMP 98; O2SAT 96
== END 2023-03-13 13:50 | disposition home or self-care (01) | DRG 637 ==
LOC: ER 17:10 → EDUNIT# 17:10 → EDBD 17:10 → TELE 03-09 01:51 → TELE-CENTR 03-10 16:36
PROVIDERS: ADMIT Internal Medicine; ATTEND Internal Medicine
DX: E11.10 Type 2 diabetes mellitus with ketoacidosis without coma (principal); N17.0 Acute kidney failure with tubular necrosis; I10 Essential (primary) hypertension; E83.39 Other disorders of phosphorus metabolism; Z83.3 Family history of diabetes mellitus; Z79.4 Long term (current) use of insulin
CPT/HCPCS: 36415; 36600; 71045; 80048; 80053; 81001; 82010; 82805; 82962; 83036; 83690; 83735; 83880; 83930; 84100; 84484; 85025; 93005; 96365; 96367; 96372; 96375; 99291; G0378; J1815

== ENCOUNTER 2024-09-16 16:38 | Inpatient (IN) | payer MEDICARE, MEDICAID ==
[~2024-09-16] VITALS: Ht 167.6 cm; Wt 88.5 kg
[~2024-09-16 16:38] MED LIST changes: +LOSA-534 PO; -LOSA50TA46 PO
[2024-09-16 17:00] VITALS: PULSE 95; RESP 17; O2SAT 95
--- NOTE | 2024-09-16 17:07 | ED.PDOC ---
History of present illness HPI Comments This is a 49 year old male MARGIEA presenting to the ED with chief complaint of hypoglycemia and ALOC. EMS reports that the patient was found in a parking lot slightly altered and when fire department arrived on scene, the patient's accucheck showed 58, being given oral glucose which raised it to 60. EMS relays that they arrived and gave the patient an IV with 250ccs of D10, bringing his sugar up to 220. Patient states he has only eaten eggs today and took his insulin today. Patient denies any chest pain, SOB, dizziness, urinary frequency, N/V/D, or abdominal pain. Chief Complaint: Hypoglycemia Time Seen by MD: 17:03 Primary Care Provider: UNKN History of present illness: Nurses Notes, Transportation Supervisor Notes, Medications, Allergies Allergies: Coded Allergies: NO KNOWN ALLERGIES (Unverified , 09/25/20) Home Meds Active Scripts Losartan Potassium (Losartan Potassium) 50 Mg Tab, 50 MG PO DAILY@2200 for 30 Days, #30 TAB Prov:CHI RICHARDSON MD 12/05/20 Hctz (Hydrochlorothiazide) 25 Mg Tab, 25 MG PO DAILY for 30 Days, #30 TAB Prov:CHI RICHARDSON MD 12/05/20 Insulin Glargine (Lantus) 100 Unit/Ml Inj, 20 UNITS SC BID@0700,2200 for 30 Days, #1 VIAL Prov:CHI RICHARDSON MD 12/05/20 Reported Medications Atorvastatin Calcium (ATORVASTATIN CALCIUM) 40 Mg Tab, 1 TAB PO DAILY, #30 TAB 5 Refills 09/26/20 Insulin Glargine (Basaglar Kwikpen) 100 Unit/Ml Inj, 100 UNIT SC, INJ 09/26/20 Hydralazine HCl (Hydralazine Hydrochloride) 100 Mg Tab, 100 MG PO, TAB 09/26/20 Metformin HCl (Metformin Hydrochloride) 1,000 Mg Tab, 1000 MG PO, TAB 09/26/20 Information Source: Patient, Emergency Med Personnel Mode of Arrival: EMS Timing: Hours Duration: Since onset Prehospital treatment: None [place]: Confusion Symptoms: Confusion History of: Diabetes, Insulin use Past Medical History PAST MEDICAL HISTORY: DM, HTN, Schizophrenia Past Medical History (Other): Bipolar Surgical History: Denies all surgeries Family History Family History: Family hx of DM Social History Smoker: Non-Smoker Alcohol: Denies ETOH Use Drugs: Denies Drug Use Lives In: Home Constitutional: denies: chills, diaphoresis, fatigue, fever, malaise, sweats, weakness, others EENTM: denies: blurred vision, double vision, ear bleeding, ear discharge, ear drainage, ear pain, ear ringing, eye pain, eye redness, hearing loss, mouth pain, mouth swelling, nasal discharge, nose bleeding, nose congestion, nose pain, photophobia, tearing, throat pain, throat swelling, voice changes, others Respiratory: denies: cough, hemoptysis, orthopnea, SOB at rest, shortness of breath, SOB with excertion, stridor, wheezing, others Cardiovascular: denies: chest pain, dizzy spells, diaphoresis, Dyspnea on exer tion, edema, irregular heart beat, left arm pain, lightheadedness, palpitations, PND, syncope, others Gastrointestinal: denies: abdomen distended, abdominal pain, blood streaked bowels, constipated, diarrhea, dysphagia, difficulty swallowing, hematemesis, melena, nausea, poor appetite, poor fluid intake, rectal bleeding, rectal pain, vomiting, others Genitourinary: denies: burning, dysuria, flank pain, frequency, hematuria, incontinence, penile discharge, penile sore, pain, testicle pain, testicle swelling, urgency, others Neurological: denies: dizziness, fainting, headache, left sided numbness, left sided weakness, numbness, paresthesia, pre-existing deficit, right sided numbness, right sided weakness, seizure, speech problems, tingling, tremors, weakness, others Musculoskeletal: denies: back pain, gout, joint pain, joint swelling, muscle pain, muscle stiffness, neck pain, others Integumetry: denies: bruises, change in color, change in hair/nails, dryness, laceration, lesions, lumps, rash, wounds, others Allergic/Immunocompromised: denies: Difficulty Healing, Frequent Infections, Hives, Itching, others Hematologic/Lymphatic: denies: anemia, blood clots, easy bleeding, easy bruising, swollen glands, others Endocrine: denies: excessive hunger, excessive sweating, excessive thirst, excessive urination, flushing, intolerance to cold, intolerance to heat, unexplained weight gain, unexplained weight loss, others Psychiatric: denies: anxiety, bipolar disorder, depression, hopeless, panic disorder, schizophrenia, sleepless, suicidal, others Unable to Obtain due to: Altered Mental Status All Other Systems: Reviewed and Negative Physical Exam General Appearance: Moderate Distress HEENT: Normal ENT Inspection, Pharynx Normal, TMs Normal Neck: Full Range of Motion, Non-Tender, Normal, Normal Inspection Respiratory: Chest Non-Tender, Lungs Clear, No Accessory Muscle Use, No Respiratory Distress, Normal Breath Sounds Cardiovascular: No Edema, No JVD, No Murmur, No Gallop, Normal Peripheral Pulses, Regular Rate/Rhythm Breast Exam: Deferred Gastrointestinal: No Organomegaly, Non Tender, No Pulsatile Mass, Normal Bowel Sounds, Soft Genitalia: Deferred Pelvic: Deferred Rectal: Deferred Extremities: No calf tenderness, Normal capillary refill, Pedal edema Musculoskeletal : Apperance: Normal Neurologic: senior communications specialist II-XII nml as Tested, Motor Weakness, Normal Affect, Normal Mood, No Sensory Deficits Cerebellar Function: Normal Reflexes: Normal Skin: Dry, Normal Color, Warm Lymphatic: No Adenopathy Was a procedure done? Was a procedure done?: No Differential Diagnosis (DM) Differential Diagnosis: Encephalopathy, Gastritis, Hyperglycemia, UTI, Other (Hypoglycemia) X-Ray, Labs, Meds, VS Vital Signs Date Time Temp Pulse Resp B/P (MAP) Pulse Ox O2 Delivery O2 Flow Rate FiO2 09/16/24 19:13 193/104 09/16/24 19:00 99.8 85 15 193/104 (133) 97 99.8 09/16/24 19:00 193/104 09/16/24 17:37 180/94 09/16/24 17:00 95 17 95 Room Air* 0 21 09/16/24 17:00 100.0 95 17 180/94 (122) 95 100.0 09/16/24 16:50 100.8 98 18 197/100 (132) 96 100.8 Lab Test 09/16/24 17:24 Range/Units White Blood Count 4.1 L 4.4-10.8 10^3/uL Red Blood Count 3.20 L 4.5-5.90 10^6/uL Hemoglobin 8.8 L 13.5-17.5 g/dL Hematocrit 25.7 L 41.0-53.0 % Mean Corpuscular Volume 80.4 80.0-100.0 fL Mean Corpuscular Hemoglobin 27.5 L 28.0-32.0 pg Mean Corpuscular Hemoglobin Concent 34.3 32.0-36.0 g/dL Red Cell Distribution Width 12.7 11.8-14.3 % Platelet Count 370 140-450 10^3/uL Mean Platelet Volume 7.3 6.9-10.8 fL Neutrophils (%) (Auto) 73.5 37.0-80.0 % Lymphocytes (%) (Auto) 16.3 10.0-50.0 % Monocytes (%) (Auto) 9.2 0.0-12.0 % Eosinophils (%) (Auto) 0.5 0.0-7.0 % Basophils (%) (Auto) 0.5 0.0-2.0 % Neutrophils # (Auto) 3.0 1.6-8.6 10 ^3/uL Lymphocytes # (Auto) 0.7 0.4-5.4 10 ^3/uL Monocytes # (Auto) 0.4 0-1.3 10 ^3/uL Eosinophils # (Auto) 0 0-0.8 10 ^3/uL Basophils # (Auto) 0 0-0.2 10 ^3/uL Nucleated Red Blood Cells 0.0 % Sodium Level 137 136-145 mmol/L Potassium Level 3.1 L 3.5-5.1 mmol/L Chloride Level 105 98-107 mmol/L Carbon Dioxide Level 19 L 20-31 mmol/L Anion Gap 13 5-15 Blood Urea Nitrogen 36 H 9-23 mg/dL Creatinine 2.68 H 0.700-1.30 mg/dL Glomerular Filtration Rate Calc 29 >90 mL/min BUN/Creatinine Ratio 13.4 10.0-20.0 Serum Glucose 107 H 74-106 mg/dL Calcium Level 7.9 L 8.7-10.4 mg/dL Current Medications Medications (Trade) Dose Ordered Sig/Angelito Route Start Time Stop Time Status Last Admin Sodium Chloride 1,000 ml @ 150 mls/hr Q6H40M ONCE IV 09/16/24 17:00 09/16/24 23:39 09/16/24 17:33 Clonidine HCl (Catapres Tablet) 0.2 mg ONCE ONCE PO 09/16/24 17:45 09/16/24 17:46 DC 09/16/24 17:37 Hydralazine HCl (Apresoline Injection) 15 mg ONCE ONCE IV 09/16/24 19:15 09/16/24 19:16 DC 09/16/24 19:13 The patient's CBC is within normal limits The chemistry panel shows hypokalemia at 3.1 The BUN is 36 and the creatinine is 2.68 The patient is being admitted The patient was hypertensive so was initially given Catapres at 0.2 mg but now the patient is given hydralazine case the patient remains in hypertensive crisis The patient is being admitted to the hospitalist Images Reviewed?: Images reviewed and evaluated by me Time of 1ST Reevaluation: 18:00 Reevaluation 1ST: Unchanged Patient Education/Counseling: Diagnosis, Treatment, Prognosis Family Education/Counseling: No Family Present SEPSIS Sepsis Screen Date sepsis recognized/suspect: Sep 16, 2024 Time Sepsis recognized/suspect: 1638 Recent Procedure: No On Antibiotic Therapy: No Respiratory Rate >20: No Heart Rate >90: No Temp<36 C (96.8 F) or >38.3 C: No SBP <90 or MAP <65 mmHG: No New Acute Mental Status Change: No Is the patient on CPAP, BIPAP,: No Physician Orders Urinalysis (09/16/24 16:54) Heplock Iv (09/16/24 16:54) [employer] (09/16/24 16:54) Blood Pressure (09/16/24 16:54) Pulse Oximetry (09/16/24 16:54) Sodium Chloride 0.9% (09/16/24 17:00) Lactic Acid W/ Reflex Order (09/16/24 19:38) Atorvastatin (Lipitor) (09/16/24 22:00) Hydrochlorothiazide Tablet (Hydrochlorot (09/17/24 10:00) Hydralazine Hcl Tablet (Apresoline Table (09/16/24 22:00) Losartan Tablet (Cozaar Tablet) (09/17/24 10:00) Potassium Er Tablet (Klor-Con Tablet) (09/16/24 19:45) Sodium Chloride 0.9% (09/16/24 19:45) Consistent Carb(Ccho)Diabetes (09/17/24 Breakfast) Glucose Blood (Accu-Chek Comfort Curve T (09/16/24 20:00) Insulin R (Human) (Insulin R) (09/16/24 20:00) Dextrose 50% Syringe (09/16/24 19:45) Admit (09/16/24 19:38) Temazepam (Restoril) (09/16/24 19:45) Ondansetron Hcl (Zofran) (09/16/24 19:45) Complete Blood Count (09/17/24 04:00) Comprehensive Metabolic Panel (09/17/24 04:00) Condition: Stable (09/16/24 19:38) Acetaminophen Tablet (Tylenol Tablet) (09/16/24 19:45) Bedrest With Bathroom Privileg (09/16/24 19:38) Vital Signs Date Time Temp Pulse Resp B/P (MAP) Pulse Ox O2 Delivery O2 Flow Rate FiO2 09/16/24 19:13 193/104 09/16/24 19:00 99.8 85 15 193/104 (133) 97 99.8 09/16/24 19:00 193/104 09/16/24 17:37 180/94 09/16/24 17:00 95 17 95 Room Air* 0 21 09/16/24 17:00 100.0 95 17 180/94 (122) 95 100.0 09/16/24 16:50 100.8 98 18 197/100 (132) 96 100.8 Laboratory Tests Test 09/16/24 17:24 White Blood Count 4.1 10^3/uL (4.4-10.8) L Medications Medications Dose Ordered Sig/Angelito Route Start Time Stop Time Status Last Admin Dose Admin Clonidine HCl 0.2 mg ONCE ONCE PO 09/16/24 17:45 09/16/24 17:46 DC 09/16/24 17:37 Hydralazine HCl 15 mg ONCE ONCE IV 09/16/24 19:15 09/16/24 19:16 DC 09/16/24 19:13 Sodium Chloride 1,000 ml @ 150 mls/hr Q6H40M ONCE IV 09/16/24 17:00 09/16/24 23:39 09/16/24 17:33 Departure 1 Departure Time of Disposition: 19:47 Impression: Primary Impression: Metabolic encephalopathy Additional Impressions: Hypoglycemia Hypokalemia Hypertensive crisis Disposition: 09 ADMITTED INPATIENT Condition: Fair Critical Care Note Critical Care Time?: Yes (45 min-critical care time only) Stability Stability form required: Yes Unstable for transfer: Telemetry monitoring (Telemetry monitoring required), ED Physician Assesment (Clinical assesment) Heart Score Heart Score: Heart Score Response (Comments) Value History N/A 0 EKG N/A 0 Age N/A 0 Risk Factors N/A 0 Troponin N/A 0 Total 0 I personally scribed for SHANE TRAN MD ([email or web address]) on 09/16/24 at 17:07. Electronically submitted by Patrick Butler ([email or web address]). SHANE TRAN MD Sep 16, 2024 17:07
[2024-09-16] MEDS: SODIUM CHLORIDE 0.9% 1,000 ML IV ONE ×2 (17:33→21:30)
[2024-09-16] MEDS: cloNIDine HCL 0.1 MG TAB PO ONE (17:37)
[2024-09-16 17:56] LABS: Basophils # (auto) 0 10 ^3/uL (0-0.2); Basophils % (auto) 0.5 % (0.0-2.0); Eosinophils # (auto) 0 10 ^3/uL (0-0.8); Eosinophils % (auto) 0.5 % (0.0-7.0); Hematocrit 25.7 % (41.0-53.0); Hemoglobin 8.8 g/dL (13.5-17.5); Lymphocytes # (auto) 0.7 10 ^3/uL (0.4-5.4); Lymphocytes % (auto) 16.3 % (10.0-50.0); Mean Corpuscular Hemoglobin 27.5 pg (28.0-32.0); Mean Corpuscular Hgb Conc. 34.3 g/dL (32.0-36.0); Mean Corpuscular Volume 80.4 fL (80.0-100.0); Monocytes # (auto) 0.4 10 ^3/uL (0-1.3); Monocytes % (auto) 9.2 % (0.0-12.0); Neutrophils % (auto) 73.5 % (37.0-80.0); Platelet Count (auto) 370 10^3/uL (140-450); Red Cell Distribution Width 12.7 % (11.8-14.3); White Blood Cell 4.1 10^3/uL (4.4-10.8)
[2024-09-16 17:57] LABS: Chloride 105 mmol/L (98-107); Sodium 137 mmol/L (136-145)
[2024-09-16 17:58] LABS: Anion Gap 13 (5-15)
[2024-09-16 18:03] LABS: BUN/Creatinine Ratio 13.4 (10.0-20.0)
[2024-09-16 18:19] LABS: Blood Urea Nitrogen 36 mg/dL (9-23); Calcium 7.9 mg/dL (8.7-10.4); Carbon Dioxide 19 mmol/L (20-31); Glucose 107 mg/dL (74-106); Potassium 3.1 mmol/L (3.5-5.1)
[2024-09-16] MEDS: hydrALAZINE HCL 20 MG/ML VL IV ONE (19:13)
[2024-09-16 19:30] VITALS: PULSE 83; RESP 16; O2SAT 94
[2024-09-16] MEDS ORDERED: DEXTROSE (50%) 50ML SYRG IV PRN (19:45)
[2024-09-16] MEDS ORDERED: ONDANSETRON HCL 4 MG/2 ML VIAL IV PRN (19:45)
[2024-09-16] MEDS: ACCU-CHEK COMFORT CURVE STRIP VI SCH (21:07)
[2024-09-16] MEDS: InsuLIN REG 1unit/0.01ml Soln (100units/ml) SC SCH (21:07)
[2024-09-16] MEDS: POTASSIUM CHL 20 Meq TABLET PO ONE (21:32)
[2024-09-16] MEDS: hydrALAZINE HCL 25 MG TAB PO SCH (22:06)
[2024-09-16] MEDS: ATORVASTATIN 20 MG TAB PO SCH (22:07)
--- NOTE | 2024-09-16 22:24 | DVHHP2 ---
History of Present Illness Reason for Visit: Altered mental status History of Present Illness 49-year-old male presents for evaluation of altered mental status. Patient was found in a parking lot altered and EMS was called. In the field his blood sugar was in the 50s. Currently he is alert oriented x3 slow in response. No n eurologic focal deficits. No slurred speech or unilateral weakness. Denies any cardiac or respiratory symptoms. Past Medical History Schizophrenia, hypertension, diabetes mellitus Past Surgical History None Family History Diabetes mellitus Smoke: No ALCOHOL: none Drugs: None Lives: with Family Review of Systems Review of Systems Review of systems are currently negative otherwise addressed in HPI. Allergies: Coded Allergies: NO KNOWN ALLERGIES (Unverified , 09/25/20) Medications Current Medications Medications Dose Ordered Sig/Angelito Route Start Time Stop Time Status Last Admin Dose Admin Atorvastatin Calcium 40 mg HS PO 09/16/24 22:00 09/16/24 22:07 40 MG Hydrochlorothiazide 25 mg DAILY PO 09/17/24 10:00 Hydralazine HCl 50 mg Q12HR PO 09/16/24 22:00 09/16/24 22:06 50 MG Losartan Potassium 50 mg DAILY PO 09/17/24 10:00 Diagnostic Test (Pha) 1 strip IQ4HR 09/16/24 20:00 09/16/24 21:07 1 STRIP Insulin Human Regular IQ4HR SC 09/16/24 20:00 Dextrose 50 ml UD PRN IV 09/16/24 19:45 Temazepam 15 mg QHSP PRN PO 09/16/24 19:45 Ondansetron HCl 4 mg Q4HP PRN IV 09/16/24 19:45 Acetaminophen 650 mg Q6HP PRN PO 09/16/24 19:45 Exam Vital Signs Vital Signs Date Time Temp Pulse Resp B/P (MAP) Pulse Ox O2 Delivery O2 Flow Rate FiO2 09/16/24 22:06 155/84 09/16/24 19:30 83 16 94 Room Air* 0 21 09/16/24 19:00 99.8 99.8 Exam Gen: 49-year-old male in mild distress yet Skin: Warm, dry, normal color and texture, no rash. HEENT: Normocephalic atraumatic, mucous membranes moist and pink. Neck: Cervical and supraclavicular nodes normal without enlargement, trachea is midline, thyroid gland is normal without masses. Pulmonary: Clear to auscultation and percussion bilaterally. Cardiac: Regular rate and rhythm. No murmur Abdomen: Soft, nontender, nondistended, bowel sounds present all 4 quadrants, no guarding, no rigidity, no organomegaly. Extremities: No cyanosis, clubbing, no edema Neuro: Cranial nerves II through XII grossly intact, normal affect and speech, no focal motor deficits. Labs/Xrays Labs Test 09/16/24 21:56 09/16/24 20:04 09/16/24 17:24 Range/Units POC Glucose 82 70-106 mg/dl Lactic Acid Level 0.6 0.4-2.0 mmol/L White Blood Count 4.1 L 4.4-10.8 10^3/uL Red Blood Count 3.20 L 4.5-5.90 10^6/uL Hemoglobin 8.8 L 13.5-17.5 g/dL Hematocrit 25.7 L 41.0-53.0 % Mean Corpuscular Volume 80.4 80.0-100.0 fL Mean Corpuscular Hemoglobin 27.5 L 28.0-32.0 pg Mean Corpuscular Hemoglobin Concent 34.3 32.0-36.0 g/dL Red Cell Distribution Width 12.7 11.8-14.3 % Platelet Count 370 140-450 10^3/uL Mean Platelet Volume 7.3 6.9-10.8 fL Neutrophils (%) (Auto) 73.5 37.0-80.0 % Lymphocytes (%) (Auto) 16.3 10.0-50.0 % Monocytes (%) (Auto) 9.2 0.0-12.0 % Eosinophils (%) (Auto) 0.5 0.0-7.0 % Basophils (%) (Auto) 0.5 0.0-2.0 % Neutrophils # (Auto) 3.0 1.6-8.6 10 ^3/uL Lymphocytes # (Auto) 0.7 0.4-5.4 10 ^3/uL Monocytes # (Auto) 0.4 0-1.3 10 ^3/uL Eosinophils # (Auto) 0 0-0.8 10 ^3/uL Basophils # (Auto) 0 0-0.2 10 ^3/uL Nucleated Red Blood Cells 0.0 % Sodium Level 137 136-145 mmol/L Potassium Level 3.1 L 3.5-5.1 mmol/L Chloride Level 105 98-107 mmol/L Carbon Dioxide Level 19 L 20-31 mmol/L Anion Gap 13 5-15 Blood Urea Nitrogen 36 H 9-23 mg/dL Creatinine 2.68 H 0.700-1.30 mg/dL Glomerular Filtration Rate Calc 29 >90 mL/min BUN/Creatinine Ratio 13.4 10.0-20.0 Serum Glucose 107 H 74-106 mg/dL Calcium Level 7.9 L 8.7-10.4 mg/dL Assessment/Plan Assessment/Plan Assessment Metabolic encephalopathy Hypoglycemia Diabetes mellitus Hypertension Acute kidney injury Dehydration Hypokalemia Plan Admit the patient to Med surge to the hospitalist Maintenance IV fluids Resume home medications Q.4 hour Accu-Cheks Continue treatment per orders. Plan discussed with: Patient My Orders Orders - CHI ESCALANTE Procedure Category Date Status Time Atorvastatin (Lipitor) PHA 09/16/24 In Process 22:00 Hydrochlorothiazide PHA 09/17/24 In Process Tablet (Hydrochlorot 10:00 Hydralazine Hcl PHA 09/16/24 In Process Tablet (Apresoline 22:00 Losartan Tablet PHA 09/17/24 In Process (Cozaar Tablet) 10:00 Sodium Chloride 0.9% PHA 09/16/24 In Process 19:45 Consistent DIET 09/17/24 Transmitted Carb(Ccho)Diabetes Breakfast Glucose Blood PHA 09/16/24 In Process (Accu-Chek Comfort 20:00 Insulin R (Human) PHA 09/16/24 In Process (Insulin R) 20:00 Dextrose 50% Syringe PHA 09/16/24 In Process 19:45 Admit ADMIT 09/16/24 Transmitted 19:38 Temazepam (Restoril) PHA 09/16/24 In Process 19:45 Ondansetron Hcl PHA 09/16/24 In Process (Zofran) 19:45 Complete Blood Count LAB 09/17/24 Verified 04:00 Comprehensive LAB 09/17/24 Verified Metabolic Panel 04:00 Condition: Stable LI 09/16/24 In Process 19:38 Acetaminophen Tablet PHA 09/16/24 In Process (Tylenol Tablet) 19:45 Bedrest With Bathroom LI 09/16/24 In Process Privileg 19:38 Date of Service: Sep 16, 2024 Billing Provider: CHI ESCALANTE Common Visit Codes: [id number] INP/OBS CARE (HIGH) CHI ESCALANTE Sep 16, 2024 22:24
[2024-09-17 07:30] VITALS: PULSE 89; RESP 12; O2SAT 97
[2024-09-17 07:50] LABS: Basophils # (auto) 0 10 ^3/uL (0-0.2); Basophils % (auto) 0.6 % (0.0-2.0); Eosinophils # (auto) 0 10 ^3/uL (0-0.8); Eosinophils % (auto) 0.4 % (0.0-7.0); Hematocrit 24.8 % (41.0-53.0); Hemoglobin 8.6 g/dL (13.5-17.5); Lymphocytes # (auto) 0.6 10 ^3/uL (0.4-5.4); Lymphocytes % (auto) 22.3 % (10.0-50.0); Mean Corpuscular Hemoglobin 27.7 pg (28.0-32.0); Mean Corpuscular Hgb Conc. 34.5 g/dL (32.0-36.0); Mean Corpuscular Volume 80.1 fL (80.0-100.0); Monocytes # (auto) 0.3 10 ^3/uL (0-1.3); Monocytes % (auto) 11.2 % (0.0-12.0); Neutrophils # (auto) 1.9 10 ^3/uL (1.6-8.6); Neutrophils % (auto) 65.5 % (37.0-80.0); Nucleated Red Blood Cells % 0.1 %; Platelet Count (auto) 346 10^3/uL (140-450); Red Blood Cells 3.09 10^6/uL (4.5-5.90); Red Cell Distribution Width 12.6 % (11.8-14.3); White Blood Cell 2.9 10^3/uL (4.4-10.8)
[2024-09-17 08:08] LABS: Alkaline Phosphatase 99 U/L (46-116); Anion Gap 11 (5-15); BUN/Creatinine Ratio 12.5 (10.0-20.0); Chloride 107 mmol/L (98-107); Potassium 3.5 mmol/L (3.5-5.1); Sodium 137 mmol/L (136-145)
[2024-09-17 08:09] LABS: Aspartate Aminotransferase 9 U/L (<34)
[2024-09-17 08:11] LABS: Alanine Aminotransferase < 9 U/L (7-40); Albumin 2.8 g/dL (3.2-4.8); Bilirubin, Total 0.2 mg/dL (0.2-1.0); Blood Urea Nitrogen 36 mg/dL (9-23); Calcium 8.1 mg/dL (8.7-10.4); Carbon Dioxide 19 mmol/L (20-31); Glucose 69 mg/dL (74-106); Total Protein 4.9 g/dL (5.7-8.2)
[2024-09-17] MEDS: hydroCHLOROthiazide 25 MG TAB PO SCH (12:32)
[2024-09-17] MEDS: LOSARTAN POTASSIUM 50 MG TAB PO SCH (12:32)
[2024-09-17 16:00] VITALS: RESP 18; O2SAT 97
[2024-09-17 16:13] VITALS: BP 146/94; PULSE 92; RESP 18; TEMP 100.2; O2SAT 97
[2024-09-17] MEDS: ACETAMINOPHEN 325 MG TAB PO PRN (16:19)
[2024-09-17 17:10] VITALS: BP 146/94; PULSE 92; RESP 18; TEMP 100.2; O2SAT 97
[2024-09-17 21:00] VITALS: BP 169/100; PULSE 85; RESP 17; TEMP 97.8; O2SAT 99
[2024-09-18] MEDS: amLODIPine BESYLATE 5 MG TAB ONE (00:59)
[2024-09-18] MEDS: hydrALAZINE HCL 20 MG/ML VL ONE (00:59)
[2024-09-18 01:00] VITALS: BP 187/109; PULSE 103; RESP 19; TEMP 98.4; O2SAT 97
[2024-09-18] MEDS: hydrALAZINE HCL 20 MG/ML VL IV PRN (01:07)
[2024-09-18] MEDS: amLODIPine BESYLATE 5 MG TAB PO ONE (01:27)
[2024-09-18 05:00] VITALS: BP 163/93; PULSE 101; RESP 19; TEMP 97.8; O2SAT 99
[2024-09-18 09:50] VITALS: BP 156/96; PULSE 100; RESP 18; TEMP 99.2; O2SAT 97
--- NOTE | 2024-09-18 11:31 | DVHPN2 ---
Reviewed: Care Plan, H&P, Labs, Medications, Previous Orders Changes from previous H/P or p: No Changes General: Per HPI Objective Vitals Vital Signs Date Time Temp Pulse Resp B/P (MAP) Pulse Ox O2 Delivery O2 Flow Rate FiO2 09/18/24 10:42 156/96 09/18/24 09:50 99.2 100 18 97 99.2 09/17/24 20:00 Room Air* 0 21 Intake/Output Intake and Output 09/18/24 07:00 Intake Total 670 ml Balance 670 ml Intake Oral 670 ml # Voids 1 Medications Current Medications Medications Dose Ordered Sig/Angelito Route Start Time Stop Time Status Last Admin Dose Admin Atorvastatin Calcium 40 mg HS PO 09/16/24 22:00 09/17/24 21:06 40 MG Hydrochlorothiazide 25 mg DAILY PO 09/17/24 10:00 09/18/24 10:42 25 MG Hydralazine HCl 50 mg Q12HR PO 09/16/24 22:00 09/18/24 10:42 50 MG Losartan Potassium 50 mg DAILY PO 09/17/24 10:00 09/18/24 10:41 50 MG Diagnostic Test (Pha) 1 strip IQ4HR 09/16/24 20:00 09/18/24 08:23 1 STRIP Insulin Human Regular IQ4HR SC 09/16/24 20:00 09/17/24 23:33 3 UNITS Dextrose 50 ml UD PRN IV 09/16/24 19:45 Temazepam 15 mg QHSP PRN PO 09/16/24 19:45 Ondansetron HCl 4 mg Q4HP PRN IV 09/16/24 19:45 Acetaminophen 650 mg Q6HP PRN PO 09/16/24 19:45 09/17/24 16:19 650 MG Hydralazine HCl 10 mg Q6HP PRN IV 09/18/24 00:30 09/18/24 01:07 10 MG Laboratory Results Laboratory Tests 09/17/24 07:29 Labs and/or images reviewed: Labs reviewed by me, Image(s) reviewed by me Assessment/Plan Assessment/Plan A 49-year-old male presents for evaluation of altered mental status. Patient was found in a parking lot altered and EMS was called. In the field his blood sugar was in the 50s. Currently he is alert oriented x3 slow in response. No neurologic focal deficits. No slurred speech or unilateral weakness. Denies any cardiac or respiratory symptoms. Metabolic encephalopathy, due to hypoglycemia Hypoglycemia Diabetes mellitus Hypertension Acute kidney injury (vasomontor) Dehydration Hypokalemia DM type II with hypoglycemia -- encourage food intake as tolerated -- hydrate well -- daily monitoring for mental status improvement Plan discussed with: Patient Date of Service: Sep 17, 2024 Billing Provider: MALVIN ALEXANDER DO Common Visit Codes: [id number] INP/OBS CARE(HIGH) MALVIN ALEXANDER DO Sep 18, 2024 11:31
--- NOTE | 2024-09-18 11:34 | DVHPN2 ---
Reviewed: Care Plan, H&P, Labs, Medications, Previous Orders Changes from previous H/P or p: No Changes General: Per HPI Objective Vitals Vital Signs Date Time Temp Pulse Resp B/P (MAP) Pulse Ox O2 Delivery O2 Flow Rate FiO2 09/18/24 10:42 156/96 09/18/24 09:50 99.2 100 18 97 99.2 09/17/24 20:00 Room Air* 0 21 Intake/Output Intake and Output 09/18/24 07:00 Intake Total 670 ml Balance 670 ml Intake Oral 670 ml # Voids 1 Medications Current Medications Medications Dose Ordered Sig/Angelito Route Start Time Stop Time Status Last Admin Dose Admin Atorvastatin Calcium 40 mg HS PO 09/16/24 22:00 09/17/24 21:06 40 MG Hydrochlorothiazide 25 mg DAILY PO 09/17/24 10:00 09/18/24 10:42 25 MG Hydralazine HCl 50 mg Q12HR PO 09/16/24 22:00 09/18/24 10:42 50 MG Losartan Potassium 50 mg DAILY PO 09/17/24 10:00 09/18/24 10:41 50 MG Diagnostic Test (Pha) 1 strip IQ4HR 09/16/24 20:00 09/18/24 08:23 1 STRIP Insulin Human Regular IQ4HR SC 09/16/24 20:00 09/17/24 23:33 3 UNITS Dextrose 50 ml UD PRN IV 09/16/24 19:45 Temazepam 15 mg QHSP PRN PO 09/16/24 19:45 Ondansetron HCl 4 mg Q4HP PRN IV 09/16/24 19:45 Acetaminophen 650 mg Q6HP PRN PO 09/16/24 19:45 09/17/24 16:19 650 MG Hydralazine HCl 10 mg Q6HP PRN IV 09/18/24 00:30 09/18/24 01:07 10 MG Laboratory Results Laboratory Tests 09/17/24 07:29 Assessment/Plan Assessment/Plan A 49-year-old male presents for evaluation of altered mental status. Patient was found in a parking lot altered and EMS was called. In the field his blood sugar was in the 50s. Currently he is alert oriented x3 slow in response. No neurologic focal deficits. No slurred speech or unilateral weakness. Denies any cardiac or respiratory symptoms. Metabolic encephalopathy, due to hypoglycemia Hypoglycemia Diabetes mellitus Hypertension Acute kidney injury (vasomontor) Dehydration Hypokalemia DM type II with hypoglycemia -- encourage food intake as tolerated -- hydrate well -- daily monitoring for mental status improvement Plan discussed with: Patient Date of Service: Sep 18, 2024 Billing Provider: MALVIN ALEXANDER DO Common Visit Codes: [id number] INP/OBS CARE(HIGH) MALVIN ALEXANDER DO Sep 18, 2024 11:34
[2024-09-18 14:32] VITALS: BP 141/87; PULSE 80; RESP 18; TEMP 98.3; O2SAT 95
[2024-09-18] MEDS ORDERED: LORazepam 2MG/ML-1ML VIAL IV PRN (16:00)
[2024-09-18 17:00] VITALS: BP_SYST 125; BP_SYST 174; BP_DIAS 79; BP_DIAS 91; PULSE 61; PULSE 91; RESP 17; RESP 18; TEMP 97.7; TEMP 98.3; O2SAT 94; O2SAT 97
[2024-09-18] MEDS: FUROSEMIDE 40 MG TAB PO SCH (17:27)
--- NOTE | 2024-09-18 17:29 | DVH ---
EXAM: CT Head Without Intravenous Contrast CLINICAL INDICATION: CONFUSION/ ALOC TECHNIQUE: Axial computed tomography images of the head/brain without intravenous contrast. This CT exam was performed using one or more of the following dose reduction techniques: automated exposure control, adjustment of the mA and/or kV according to patient size, and/or use of iterative reconstru ction technique. CONTRAST: RADIATION DOSE: CTDIvol = 65.77 mGy, DLP = 1295.72 mGy-cm COMPARISON: No relevant prior studies available. FINDINGS: BRAIN AND EXTRA-AXIAL SPACES: The cerebral and cerebellar sulci are prominent consistent with brain atrophy. Areas of decreased attenuation in the deep cerebral white matter are consistent with small vessel ischemic/degenerative changes. No acute intracranial hemorrhage, midline shift or mass effec t. If symptoms persist, further evaluation with MRI is recommended. BONES/JOINTS: Unremarkable. No acute fracture. SOFT TISSUES: Unremarkable. SINUSES: Opacification of the left maxillary sinus, likely sinus disease. MASTOID AIR CELLS: Unremarkable as visualized. No mastoid effusion. OTHER FINDINGS: Comparison None. . IMPRESSION: 1. Generalized brain atrophy. 2. Small vessel ischemic/degenerative changes. 3. No acute intracranial hemorrhage, midline shift or mass effect. If symptoms persist, further eval uation with MRI is recommended. HS:Y
[2024-09-18 21:00] VITALS: BP 157/94; PULSE 76; RESP 18; TEMP 97.8; O2SAT 97
[2024-09-18] MEDS: levETIRAcetam 500 MG TAB PO SCH (21:12)
[2024-09-19 01:00] VITALS: BP 148/69; PULSE 89; RESP 18; TEMP 98.8; O2SAT 99
[2024-09-19] MEDS: TEMAZEPAM 15 MG CAP PO PRN (02:45)
[2024-09-19 05:00] VITALS: BP 152/90; PULSE 99; RESP 18; TEMP 97.8; O2SAT 96
[2024-09-19 09:39] VITALS: BP 140/91; PULSE 85; RESP 18; TEMP 97.9; O2SAT 98
[2024-09-19 13:00] VITALS: BP 150/89; PULSE 85; RESP 18; TEMP 97.5; O2SAT 99
[2024-09-19 14:36] LABS: Basophils # (auto) 0 10 ^3/uL (0-0.2); Basophils % (auto) 0.4 % (0.0-2.0); Eosinophils # (auto) 0 10 ^3/uL (0-0.8); Eosinophils % (auto) 0.9 % (0.0-7.0); Hematocrit 25.9 % (41.0-53.0); Hemoglobin 8.7 g/dL (13.5-17.5); Lymphocytes # (auto) 1.3 10 ^3/uL (0.4-5.4); Mean Corpuscular Hemoglobin 27.4 pg (28.0-32.0); Mean Corpuscular Hgb Conc. 33.4 g/dL (32.0-36.0); Monocytes # (auto) 0.6 10 ^3/uL (0-1.3); Monocytes % (auto) 13.4 % (0.0-12.0); Neutrophils # (auto) 2.2 10 ^3/uL (1.6-8.6); Neutrophils % (auto) 53.3 % (37.0-80.0); Nucleated Red Blood Cells % 0.1 %; Platelet Count (auto) 351 10^3/uL (140-450); Red Blood Cells 3.16 10^6/uL (4.5-5.90); Red Cell Distribution Width 12.9 % (11.8-14.3); White Blood Cell 4.2 10^3/uL (4.4-10.8)
[2024-09-19 14:53] LABS: Albumin 3.3 g/dL (3.2-4.8); Alkaline Phosphatase 98 U/L (46-116); Anion Gap 12 (5-15); Aspartate Aminotransferase 13 U/L (<34); BUN/Creatinine Ratio 13.6 (10.0-20.0); Potassium 3.7 mmol/L (3.5-5.1); Sodium 138 mmol/L (136-145); Total Protein 5.8 g/dL (5.7-8.2)
[2024-09-19 14:54] LABS: Alanine Aminotransferase < 9 U/L (7-40); Bilirubin, Total 0.2 mg/dL (0.2-1.0); Blood Urea Nitrogen 48 mg/dL (9-23); Calcium 8.6 mg/dL (8.7-10.4); Carbon Dioxide 19 mmol/L (20-31); Chloride 107 mmol/L (98-107); Glucose 174 mg/dL (74-106)
[2024-09-19 16:56] VITALS: BP 150/97; PULSE 83; RESP 18; TEMP 97.7; O2SAT 99
[2024-09-19 21:09] VITALS: BP 162/100; PULSE 87; RESP 20; TEMP 98.7; O2SAT 99
[2024-09-20 01:00] VITALS: BP 172/93; PULSE 84; RESP 19; TEMP 98.9; O2SAT 97
[2024-09-20 02:35] VITALS: BP 161/109; PULSE 91
[2024-09-20 05:00] VITALS: BP 161/94; PULSE 84; RESP 20; TEMP 97.8; O2SAT 98
[2024-09-20 08:30] VITALS: BP 171/99; PULSE 88; RESP 16; TEMP 97.3; O2SAT 98
--- NOTE | 2024-09-20 12:57 | DVHPN2 ---
Reviewed: Care Plan, H&P, Labs, Medications, Previous Orders Changes from previous H/P or p: No Changes General: Per HPI Objective Vitals Vital Signs Date Time Temp Pulse Resp B/P (MAP) Pulse Ox O2 Delivery O2 Flow Rate FiO2 09/20/24 08:30 97.3 88 16 171/99 (123) 98 97.3 09/20/24 08:01 Room Air* 0 21 Intake/Output Intake and Output 09/20/24 07:00 Intake Total 1225 ml Output Total 1100 ml Balance 125 ml Intake Oral 1225 ml Output Urine Total 1100 ml # Voids 2 # Bowel Movements 2 Medications Current Medications Medications Dose Ordered Sig/Angelito Route Start Time Stop Time Status Last Admin Dose Admin Atorvastatin Calcium 40 mg HS PO 09/16/24 22:00 09/19/24 21:19 40 MG Hydrochlorothiazide 25 mg DAILY PO 09/17/24 10:00 09/20/24 08:14 25 MG Hydralazine HCl 50 mg Q12HR PO 09/16/24 22:00 09/20/24 08:13 50 MG Losartan Potassium 50 mg DAILY PO 09/17/24 10:00 09/20/24 08:12 50 MG Diagnostic Test (Pha) 1 strip IQ4HR 09/16/24 20:00 09/20/24 12:26 1 STRIP Insulin Human Regular IQ4HR SC 09/16/24 20:00 09/19/24 20:12 3 UNITS Dextrose 50 ml UD PRN IV 09/16/24 19:45 Temazepam 15 mg QHSP PRN PO 09/16/24 19:45 09/19/24 02:45 15 MG Ondansetron HCl 4 mg Q4HP PRN IV 09/16/24 19:45 Acetaminophen 650 mg Q6HP PRN PO 09/16/24 19:45 09/17/24 16:19 650 MG Hydralazine HCl 10 mg Q6HP PRN IV 09/18/24 00:30 09/20/24 01:37 10 MG Furosemide 40 mg BIDD PO 09/18/24 18:00 09/20/24 05:40 40 MG Levetiracetam 500 mg BID PO 09/18/24 22:00 09/20/24 08:14 500 MG Lorazepam 2 mg Q2HPRN PRN IV 09/18/24 16:00 Laboratory Results Laboratory Tests 09/19/24 14:21 Chemistry Test 09/19/24 14:21 Albumin 3.3 g/dL (3.2-4.8) Calcium Level 8.6 mg/dL (8.7-10.4) L Total Protein 5.8 g/dL (5.7-8.2) LFT Test 09/19/24 14:21 Alanine Aminotransferase (ALT) < 9 U/L (7-40) Alkaline Phosphatase 98 U/L (46-116) Aspartate Amino Transferase (AST) 13 U/L (<34) Total Bilirubin 0.2 mg/dL (0.2-1.0) Assessment/Plan Assessment/Plan A 49-year-old male presents for evaluation of altered mental status. Patient was found in a parking lot altered and EMS was called. In the field his blood sugar was in the 50s. Currently he is alert oriented x3 slow in response. No neurologic focal deficits. No slurred speech or unilateral weakness. Denies any cardiac or respiratory symptoms. Metabolic encephalopathy, due to hypoglycemia Hypoglycemia Diabetes mellitus Hypertension Acute kidney injury (vasomontor) Dehydration Hypokalemia DM type II with hypoglycemia -- encourage food intake as tolerated -- hydrate well -- daily monitoring for mental status improvement -- doing better Plan discussed with: Patient My Orders Orders - MALVIN ALEXANDER DO Procedure Category Date Status Time Apply Z-Guard LI 09/19/24 In Process 12:02 Date of Service: Sep 19, 2024 Billing Provider: MALVIN ALEXANDER DO Common Visit Codes: [id number] INP/OBS CARE(HIGH) MALVIN ALEXANDER DO Sep 20, 2024 12:57
--- NOTE | 2024-09-20 12:59 | DVHDS2 ---
Discharge Summary Date of Admission Sep 16, 2024 at 19:38 Date of Discharge: Sep 20, 2024 Labs/Diagnostic Data: Laboratory Results Test 09/20/24 12:03 09/19/24 14:21 09/16/24 20:04 POC Glucose 111 mg/dl (70-106) White Blood Count 4.2 10^3/uL (4.4-10.8) Red Blood Count 3.16 10^6/uL (4.5-5.90) Hemoglobin 8.7 g/dL (13.5-17.5) Hematocrit 25.9 % (41.0-53.0) Mean Corpuscular Volume 82.0 fL (80.0-100.0) Mean Corpuscular Hemoglobin 27.4 pg (28.0-32.0) Mean Corpuscular Hemoglobin Concent 33.4 g/dL (32.0-36.0) Red Cell Distribution Width 12.9 % (11.8-14.3) Platelet Count 351 10^3/uL (140-450) Mean Platelet Volume 7.2 fL (6.9-10.8) Neutrophils (%) (Auto) 53.3 % (37.0-80.0) Lymphocytes (%) (Auto) 32.0 % (10.0-50.0) Monocytes (%) (Auto) 13.4 % (0.0-12.0) Eosinophils (%) (Auto) 0.9 % (0.0-7.0) Basophils (%) (Auto) 0.4 % (0.0-2.0) Neutrophils # (Auto) 2.2 10 ^3/uL (1.6-8.6) Lymphocytes # (Auto) 1.3 10 ^3/uL (0.4-5.4) Monocytes # (Auto) 0.6 10 ^3/uL (0-1.3) Eosinophils # (Auto) 0 10 ^3/uL (0-0.8) Basophils # (Auto) 0 10 ^3/uL (0-0.2) Nucleated Red Blood Cells 0.1 % Sodium Level 138 mmol/L (136-145) Potassium Level 3.7 mmol/L (3.5-5.1) Chloride Level 107 mmol/L (98-107) Carbon Dioxide Level 19 mmol/L (20-31) Anion Gap 12 (5-15) Blood Urea Nitrogen 48 mg/dL (9-23) Creatinine 3.53 mg/dL (0.700-1.30) Glomerular Filtration Rate Calc 21 mL/min (>90) BUN/Creatinine Ratio 13.6 (10.0-20.0) Serum Glucose 174 mg/dL (74-106) Calcium Level 8.6 mg/dL (8.7-10.4) Total Bilirubin 0.2 mg/dL (0.2-1.0) Aspartate Amino Transferase (AST) 13 U/L (<34) Alanine Aminotransferase (ALT) < 9 U/L (7-40) Alkaline Phosphatase 98 U/L (46-116) Total Protein 5.8 g/dL (5.7-8.2) Albumin 3.3 g/dL (3.2-4.8) Lactic Acid Level 0.6 mmol/L (0.4-2.0) Other Laboratory Tests 09/19/24 14:21 Brief Hx & Hospital Course: A 49-year-old male presents for evaluation of altered mental status. Patient was found in a parking lot altered and EMS was called. In the field his blood sugar was in the 50s. Currently he is alert oriented x3 slow in response. No neurologic focal deficits. No slurred speech or unilateral weakness. Denies any cardiac or respiratory symptoms. Metabolic encephalopathy, due to hypoglycemia Hypoglycemia Diabetes mellitus Hypertension Acute kidney injury (vasomontor) Dehydration Hypokalemia DM type II with hypoglycemia -- discharged to home Condition at Discharge: Fair Final Diagnosis/Problems List see above Discharge Disposition: Home Discharge Instruct/Medications Diet: Cardiac 2g Na,low cholest Activity: No Restrictions, As Tolerated Discharge Statement: "Patient was advised to return to the ER or call 911 if any headaches, dizziness, shortness of breath, chest pain, abdominal pain, bleeding, fevers, or worsening of medical condition. Patient was counseled about treatment plan, medications, possible side effects, patientverbalized understanding. All questions were answered to the best of my ability. This discharge took greater then 30 minutes in planning, reviewing documentation, counseling the patient, and discussing with other team members." ASSESSMENT ASSESSMENT Assessment Date of Service: Sep 20, 2024 Billing Provider: MALVIN ALEXANDER DO Common Visit Codes: [id number] DISCH DAY >30min MALVIN ALEXANDER DO Sep 20, 2024 12:59
--- NOTE | 2024-09-20 12:59 | DVHPN2 ---
Reviewed: Care Plan, H&P, Labs, Medications, Previous Orders Changes from previous H/P or p: No Changes General: Per HPI Objective Vitals Vital Signs Date Time Temp Pulse Resp B/P (MAP) Pulse Ox O2 Delivery O2 Flow Rate FiO2 09/20/24 08:30 97.3 88 16 171/99 (123) 98 97.3 09/20/24 08:01 Room Air* 0 21 Intake/Output Intake and Output 09/20/24 07:00 Intake Total 1225 ml Output Total 1100 ml Balance 125 ml Intake Oral 1225 ml Output Urine Total 1100 ml # Voids 2 # Bowel Movements 2 General Appearance: Alert, Oriented X3, Cooperative, No acute distress Cardiovascular: Regular rate, Normal S1, Normal S2 Abdomen: Normal bowel sounds, Soft Medications Current Medications Medications Dose Ordered Sig/Angelito Route Start Time Stop Time Status Last Admin Dose Admin Atorvastatin Calcium 40 mg HS PO 09/16/24 22:00 09/19/24 21:19 40 MG Hydrochlorothiazide 25 mg DAILY PO 09/17/24 10:00 09/20/24 08:14 25 MG Hydralazine HCl 50 mg Q12HR PO 09/16/24 22:00 09/20/24 08:13 50 MG Losartan Potassium 50 mg DAILY PO 09/17/24 10:00 09/20/24 08:12 50 MG Diagnostic Test (Pha) 1 strip IQ4HR 09/16/24 20:00 09/20/24 12:26 1 STRIP Insulin Human Regular IQ4HR SC 09/16/24 20:00 09/19/24 20:12 3 UNITS Dextrose 50 ml UD PRN IV 09/16/24 19:45 Temazepam 15 mg QHSP PRN PO 09/16/24 19:45 09/19/24 02:45 15 MG Ondansetron HCl 4 mg Q4HP PRN IV 09/16/24 19:45 Acetaminophen 650 mg Q6HP PRN PO 09/16/24 19:45 09/17/24 16:19 650 MG Hydralazine HCl 10 mg Q6HP PRN IV 09/18/24 00:30 09/20/24 01:37 10 MG Furosemide 40 mg BIDD PO 09/18/24 18:00 09/20/24 05:40 40 MG Levetiracetam 500 mg BID PO 09/18/24 22:00 09/20/24 08:14 500 MG Lorazepam 2 mg Q2HPRN PRN IV 09/18/24 16:00 Laboratory Results Laboratory Tests 09/19/24 14:21 Chemistry Test 09/19/24 14:21 Albumin 3.3 g/dL (3.2-4.8) Calcium Level 8.6 mg/dL (8.7-10.4) L Total Protein 5.8 g/dL (5.7-8.2) LFT Test 09/19/24 14:21 Alanine Aminotransferase (ALT) < 9 U/L (7-40) Alkaline Phosphatase 98 U/L (46-116) Aspartate Amino Transferase (AST) 13 U/L (<34) Total Bilirubin 0.2 mg/dL (0.2-1.0) Labs and/or images reviewed: Labs reviewed by me, Image(s) reviewed by me Assessment/Plan Assessment/Plan A 49-year-old male presents for evaluation of altered mental status. Patient was found in a parking lot altered and EMS was called. In the field his blood sugar was in the 50s. Currently he is alert oriented x3 slow in response. No neurologic focal deficits. No slurred speech or unilateral weakness. Denies any cardiac or respiratory symptoms. Metabolic encephalopathy, due to hypoglycemia Hypoglycemia Diabetes mellitus Hypertension Acute kidney injury (vasomontor) Dehydration Hypokalemia DM type II with hypoglycemia -- encourage food intake as tolerated -- hydrate well -- daily monitoring for mental status improvement Plan discussed with: Patient My Orders Orders - MALVIN ALEXANDER DO Procedure Category Date Status Time Apply Z-Guard LI 09/19/24 In Process 12:02 Date of Service: Sep 19, 2024 Billing Provider: MALVIN ALEXANDER DO Common Visit Codes: [id number] INP/OBS CARE(HIGH) MALVIN ALEXANDER DO Sep 20, 2024 12:59
[2024-09-20 13:00] VITALS: BP 157/89; PULSE 80; RESP 16; TEMP 97; O2SAT 98
== END 2024-09-20 15:34 | disposition home or self-care (01) | DRG 637 ==
LOC: ER 16:38 → EDBD 16:38 → OVERFLOW 19:38 → WEST WING 19:42
PROVIDERS: ADMIT Internal Medicine; ATTEND Internal Medicine
DX: E11.649 Type 2 diabetes mellitus with hypoglycemia without coma (principal); G93.41 Metabolic encephalopathy; I16.9 Hypertensive crisis, unspecified; N17.0 Acute kidney failure with tubular necrosis; I10 Essential (primary) hypertension; F20.9 Schizophrenia, unspecified; E86.0 Dehydration; E87.6 Hypokalemia; Z83.3 Family history of diabetes mellitus
CPT/HCPCS: 36415; 70450; 80048; 80053; 82962; 83605; 85025; 96361; 96374; 99291; G0378; J1815